=== PATIENT | male | born 1965 | race Caucasian/White ===

== ENCOUNTER 2017-04-05 16:34 | Emergency (ER) | payer MEDICARE ==
[2016-09-22 06:09] VITALS: BMI 23.7
[~2017-04-05 16:34] MED LIST: AMBIEN10 MG PO; ASPIRIN325 MG PO; BACLOFEN10 MG PO; BAYER CHEWABLE81 MG PO; COLACE100 MG PO; COREG6.25 MG PO; DURAGESIC1 PATCH .1 TRANSDERM; EFFIENT10 MG PO; EMBEDA PO; FLAGYL500 MG PO; FUROSEMIDE20 MG PO; GLIPIZIDE10 MG PO; GLUCOTROL 5 MG T5 MG PO; HYDROCODONE-APA1 TAB PO; ISOSORBIDE MONO30 M1 PO; LANTUS INSULIN10 ML SC; LASIX20 MG PO; LEVAQUIN500 MG PO; LIPITOR40 MG PO; NEURONTIN 300300 MG PO; NEURONTIN600 MG PO; NICODERM C1 PATCH .3 TRANSDERM; NITRO-DUR0.1 MG TD; NITROSTAT0.4 MG SL; NORCO 10/325 TA1 TA1 PO; NOVOLOG FLEXPEN INJ; PERCOCET 10/3251 TA1 PO; PLAVIX75 MG PO; PRINIVIL20 MG PO; ROXICODONE15 MG PO; SOMA350 MG PO; XANAX1 MG PO; ZESTRIL20 MG PO; ZOCOR20 MG PO; ZOLOFT50 MG PO; [UNRECOGNIZED DRUG - OTHER] PO
[2017-04-05 18:22] LABS: BASOPHILS 0.2 % (0-2); EOSINOPHILS 6.7 % (0-7); HEMATOCRIT 40.3 % (42.0-54.0); HEMOGLOBIN 13.4 g/dL (13.5-17.5); IMMATURE GRANULOCYTES 0.2 % (0-5); LYMPHOCYTES 32.5 % (15-50); MCH 29.1 pg (26.0-34.0); MCHC 33.3 g/dL (31.0-37.0); MCV 87.4 fL (80.0-100.0); MEAN PLATELET VOLUME 10.8 fL (7.4-10.4); NEUTROPHILS 52.4 % (40-80); PLATELET COUNT 208 10x3/uL (130-400); RBC 4.61 10x6/uL (4.20-6.10); RDW 12.9 % (11.5-14.5); WBC 9.7 10x3/uL (4.8-10.8)
== END 2017-04-05 18:40 | disposition home or self-care (01) ==
LOC: D.ER 16:34
PROVIDERS: Emergency Medicine
DX: S16.1XXA Strain of muscle, fascia and tendon at neck level, initial encounter (principal); V43.52XA Car driver injured in collision with other type car in traffic accident, initial encounter; Y93.89 Activity, other specified; Y92.410 Unspecified street and highway as the place of occurrence of the external cause; S50.311A Abrasion of right elbow, initial encounter; Z86.73 Personal history of transient ischemic attack (TIA), and cerebral infarction without residual deficits; I10 Essential (primary) hypertension; E11.9 Type 2 diabetes mellitus without complications; Z79.4 Long term (current) use of insulin; F17.200 Nicotine dependence, unspecified, uncomplicated

== ENCOUNTER 2017-04-07 21:19 | Observation (INO) | payer MEDICARE ==
[~2017-04-07] VITALS: Ht 177.8 cm; Wt 72.7 kg
[2017-04-07 22:08] LABS: BASOPHILS 0.2 % (0-2); EOSINOPHILS 6.8 % (0-7); HEMATOCRIT 40.5 % (42.0-54.0); HEMOGLOBIN 13.4 g/dL (13.5-17.5); IMMATURE GRANULOCYTES 0.1 % (0-5); LYMPHOCYTES 31.5 % (15-50); MCH 28.5 pg (26.0-34.0); MCHC 33.1 g/dL (31.0-37.0); MONOCYTES 8.9 % (2-11); NEUTROPHILS 52.5 % (40-80); PLATELET COUNT 215 10x3/uL (130-400); RBC 4.71 10x6/uL (4.20-6.10); RDW 12.8 % (11.5-14.5); WBC 8.2 10x3/uL (4.8-10.8)
[2017-04-07 22:29] LABS: ALBUMIN 3.8 g/dL (3.4-5.0); ALKALINE PHOSPHATASE 96 U/L (46-116); ALT (SGPT) 29 U/L (10-68); BILIRUBIN - TOTAL 0.48 mg/dL (0.2-1.3); CALC OSMOLALITY 286 mosm/kg (275-300); CALCIUM 8.8 mg/dL (8.5-10.1); CARBON DIOXIDE 29.9 mmol/L (21.0-32.0); CHLORIDE - SERUM 104 mmol/L (98-107); CREATININE - SERUM 0.6 mg/dL (0.6-1.3); GLUCOSE 230 mg/dL (74-106); PROTEIN - SERUM 6.9 g/dL (6.4-8.2); SODIUM 141 mmol/L (136-145); UREA NITROGEN 11 mg/dL (7-18); eGFR NON AFRICAN AMERICAN > 90 mL/min (90-120)
[2017-04-07 22:37] LABS: CHOL - HDL RATIO 4.9 ratio (2.3-4.9); CHOLESTEROL, TOTAL 160 mg/dL (0-200); CKMB 8.2 U/L (0.0-3.6); CREATINE KINASE 423 UL (21-232); HDL CHOLESTEROL 33 mg/dL (32-96); LDL CHOLESTEROL 81 mg/dL (0-100); LDL-HDL RATIO 2.5 ratio (1.5-3.5); TRIGLYCERIDE 232 mg/dL (30-200); TROPONIN-I 0.018 ng/mL (0.000-0.060)
--- NOTE | 2017-04-08 00:49 | NUR ---
RECEIVED FROM ER, TELEMTRY PLACED ON. IV-L. HAND-SL, BED IS LOW, SRX2, CALL LIGHT IN REACH, WILL CONTINUE TO MONITOR
[2017-04-08 01:30] VITALS: BP 126/69; Ht 177.8 cm; Wt 72.7 kg
[2017-04-08 04:32] VITALS: BP 106/64
[2017-04-08 05:26] LABS: CKMB 3.2 U/L (0.0-3.6); CREATINE KINASE 253 UL (21-232); TROPONIN-I < 0.017 ng/mL (0.000-0.060)
--- NOTE | 2017-04-08 07:30 | NUR ---
PT RESTING MIKHAIL, FAMILY AT BEDSIDE, DENIES NEEDS AT THIS TIME. BREATHING UNLABORED AND EQUAL, WILL CTM.
[2017-04-08 07:59] VITALS: BP 106/68
--- NOTE | 2017-04-08 10:07 | NUR ---
PT D/C. DISCHARGE INSTURCTRIONS PROVIDED AND PT VERBALIZED UNDERSTANDING. TELEMETRY REMOVED AND RETURNED TO AVIONICS SAFETY INSPECTOR. IV REMOVED WITH CATHETER INTACT, DRESSING APPLIED. RESPIRATIONS UNLABORED AND EQAUL, PT SHOWS NO SIGNS OF DISTRESS. WILL CALL FOR WHEELCHAIR ESCORT WHEN PT IS READY.
== END 2017-04-08 11:52 | disposition home or self-care (01) ==
LOC: D.ER 21:19 → D.M2 04-08 00:15 → OBSVTIME 04-08 00:15 → D.M2 04-08 00:15
PROVIDERS: Family Medicine; ADMIT Internal Medicine Interventional Cardiology
DX: R07.89 Other chest pain (principal); V89.2XXA Person injured in unspecified motor-vehicle accident, traffic, initial encounter; Z86.73 Personal history of transient ischemic attack (TIA), and cerebral infarction without residual deficits; I11.0 Hypertensive heart disease with heart failure; I50.9 Heart failure, unspecified; I25.10 Atherosclerotic heart disease of native coronary artery without angina pectoris; Z95.5 Presence of coronary angioplasty implant and graft; Z72.0 Tobacco use

== ENCOUNTER 2017-05-05 18:20 | Inpatient (IN) | payer MEDICARE ==
[~2017-05-05] VITALS: Ht 177.8 cm; Wt 85.1 kg
[2017-05-05 19:54] LABS: BASOPHILS 0.2 % (0-2); EOSINOPHILS 5.7 % (0-7); HEMATOCRIT 39.3 % (42.0-54.0); HEMOGLOBIN 13.5 g/dL (13.5-17.5); IMMATURE GRANULOCYTES 0.2 % (0-5); LYMPHOCYTES 27.2 % (15-50); MCH 29.2 pg (26.0-34.0); MCHC 34.4 g/dL (31.0-37.0); MCV 85.1 fL (80.0-100.0); MEAN PLATELET VOLUME 10.7 fL (7.4-10.4); MONOCYTES 7.3 % (2-11); NEUTROPHILS 59.4 % (40-80); PLATELET COUNT 237 10x3/uL (130-400); RBC 4.62 10x6/uL (4.20-6.10); RDW 13.1 % (11.5-14.5); WBC 10.7 10x3/uL (4.8-10.8)
[2017-05-05 20:07] LABS: ALBUMIN 3.6 g/dL (3.4-5.0); ALKALINE PHOSPHATASE 82 U/L (46-116); ALT (SGPT) 27 U/L (10-68); CALC OSMOLALITY 285 mosm/kg (275-300); CALCIUM 8.8 mg/dL (8.5-10.1); CARBON DIOXIDE 26.6 mmol/L (21.0-32.0); CHLORIDE - SERUM 103 mmol/L (98-107); CREATININE - SERUM 0.7 mg/dL (0.6-1.3); GLUCOSE 247 mg/dL (74-106); POTASSIUM - SERUM 4.2 mmol/L (3.5-5.1); SODIUM 140 mmol/L (136-145); UREA NITROGEN 11 mg/dL (7-18); eGFR NON AFRICAN AMERICAN > 90 mL/min (90-120)
[2017-05-05 20:18] LABS: AMYLASE - SERUM 16 U/L (25-115); CKMB 1.2 U/L (0.0-3.6); CREATINE KINASE 127 UL (21-232); LIPASE 70 U/L (73-393)
[2017-05-05 20:20] LABS: TROPONIN-I < 0.017 ng/mL (0.000-0.060)
[2017-05-05 22:54] LABS: APPEARANCE CLEAR (CLEAR); BILIRUBIN NEGATIVE (NEGATIVE); COLOR YELLOW (YELLOW); GLUCOSE 100 mg/dL (NEGATIVE); KETONE NEGATIVE (NEGATIVE); LEUKOCYTE ESTERASE NEGATIVE (NEGATIVE); NITRITE NEGATIVE (NEGATIVE); PROTEIN NEGATIVE (NEGATIVE); SPECIFIC GRAVITY 1.015 (1.005-1.020)
[2017-05-05 22:57] LABS: UDS - AMPHET NEGATIVE QUAL (NEGATIVE); UDS - BARB NEGATIVE QUAL (NEGATIVE); UDS - BENZO POSITIVE QUAL (NEGATIVE); UDS - COCAINE NEGATIVE QUAL (NEGATIVE); UDS - METH NEGATIVE QUAL (NEGATIVE); UDS - OPIATE POSITIVE QUAL (NEGATIVE); UDS - PCP NEGATIVE QUAL (NEGATIVE); UDS - THC NEGATIVE QUAL (NEGATIVE)
--- NOTE | 2017-05-05 23:08 | NUR ---
RECEIVED PT FROM ER, PT ACCOMPANY BY ER NURSE AND FAMILY MEMBERS. PT ALERT AND ORIENTED.
--- NOTE | 2017-05-06 04:00 | NUR ---
PT REST QUIETLY IN BED, BED LOW, EYE CLOSE, CALL LIGHT WITHIN REACH.
[2017-05-06 04:20] VITALS: BP 98/56
--- NOTE | 2017-05-06 07:19 | NUR ---
PT LAYING ON R SIDE SLEEPING RR EVEN AND UNLABORED. NO S/S DISTRESS NOTED IN BED WITH PT ALSO SLEEPING. SON IN THE FLOOR ALSO ASLEEP WILL CONT TO MONITOR
[2017-05-06 09:18] VITALS: BP 129/69
--- NOTE | 2017-05-06 10:03 | NUR ---
DURING AM ASSESSMENT. FAMILY IS CONCERNED ABOUT PT LEFT EYE "SEEMS DROOPY". CLEAR DRAINAGE FROM EYE NOTED. PT DOES HAVE SLIGHT LEFT SIDED WEAKNESS DURING ASSESSMENT. PT ABDOMEN IS DISTENDED BUT NOT FIRM. PT STATES IS SLIGHTLY TENDER TO TOUCH. PAGED DOMENIC BOARD MILL SUPERVISOR ABOUT PT LEFT SIDED WEAKNESS.
[2017-05-06 12:35] VITALS: BP 130/65
[2017-05-06 15:08] VITALS: Ht 177.8 cm; Wt 85.1 kg
[2017-05-06 16:27] VITALS: BP 104/68
--- NOTE | 2017-05-06 17:10 | NUR ---
PT STATING THAT DR LACY TOLD HIM THAT HE COULD BE ON A "PAIN PUMP TO SELF DELIVER PAIN MEDICATION". I EXPLAINED TO PT THAT DR LACY CHANGED HIS DOSAGE OF MEDICATION FROM D86KBOP TO 6HPRN HE REQUESTED AND HE TAKES AT HOME. PT INSISTED THAT DR LACY TOLD HIM THAT HE COULD BE ON A PAIN PUMP. I PERSONALLY ASKED DR LACY IF HE TOLD PT THIS. DR LACY SAID NO. I TOLD PT AGAIN THAT DR LACY DID NOT ORDER DISTRIBUTION TECH PUMP ETC. PT IS ANGRY AND WANTS TO TALK WITH DR LACY ABOUT THIS SUBJECT AGAIN TOMORROW.
--- NOTE | 2017-05-06 19:23 | NUR ---
RECEIVED REPORT, WILL ASSUME CARE OF PT, ASKING WHEN PAIN MEDS ARE DUE, NOT UNTIL 2129, THAN SAID DR. LACY WAS GOING TO GIVE HIM A CUSTOMER CONTACT REPRESENTATIVE PUMP, FAMILY IN ROOM, BED IS LOW, SRX2, WILL CONTINUE PLAN OF CARE
--- NOTE | 2017-05-06 19:55 | NUR ---
TORPEDO SPECIALIST AT BEDSIDE TO OBTAIN VITALS, CALL LIGHT IN REACH. WILL CONTINUE WITH PLAN OF CARE.
[2017-05-06 20:00] VITALS: BP 103/65
[2017-05-07] VITALS: BP 127/71
--- NOTE | 2017-05-07 01:41 | NUR ---
ASSESSMENT COMPLETE, SEE FLOW SHEET, PT ASKING FOR PAIN MEDS, WILL GIVE ORDER, BED IS LOW, SRX2, ASLEEP IN BED NEXT TO HIM, SON IN CHAIR, CALL LIGHT IN REACH, WILL CONTINUE PLAN OF CARE
[2017-05-07 04:00] VITALS: BP 109/69
[2017-05-07 06:13] LABS: BASOPHILS 0.3 % (0-2); EOSINOPHILS 6.3 % (0-7); HEMOGLOBIN 13.3 g/dL (13.5-17.5); IMMATURE GRANULOCYTES 0.3 % (0-5); LYMPHOCYTES 33.8 % (15-50); MCH 28.9 pg (26.0-34.0); MCHC 34.1 g/dL (31.0-37.0); MCV 84.8 fL (80.0-100.0); MEAN PLATELET VOLUME 11.1 fL (7.4-10.4); MONOCYTES 7.2 % (2-11); NEUTROPHILS 52.1 % (40-80); PLATELET COUNT 223 10x3/uL (130-400)
[2017-05-07 06:20] LABS: CALCIUM 8.9 mg/dL (8.5-10.1); CARBON DIOXIDE 27.1 mmol/L (21.0-32.0); CHLORIDE - SERUM 107 mmol/L (98-107); CHOL - HDL RATIO 4.5 ratio (2.3-4.9); CHOLESTEROL, TOTAL 130 mg/dL (0-200); CREATININE - SERUM 0.8 mg/dL (0.6-1.3); HDL CHOLESTEROL 29 mg/dL (32-96); LDL CHOLESTEROL 76 mg/dL (0-100); LDL-HDL RATIO 2.6 ratio (1.5-3.5); POTASSIUM - SERUM 3.9 mmol/L (3.5-5.1); SODIUM 144 mmol/L (136-145); TRIGLYCERIDE 125 mg/dL (30-200); eGFR NON AFRICAN AMERICAN > 90 mL/min (90-120)
[2017-05-07 06:21] LABS: CALC OSMOLALITY 291 mosm/kg (275-300); GLUCOSE 179 mg/dL (74-106); UREA NITROGEN 15 mg/dL (7-18)
[2017-05-07 07:31] VITALS: BP 95/52
--- NOTE | 2017-05-07 07:53 | NUR ---
PT IN BED ONE FAMILY MEMBER AT BEDSIDE AND ANOTHER IN THE BED WITH PT PROVIDED PAIN MEDICATION ORDERED DENIES FURTHER NEEDS AT THIS TIME WILL CONTINUE TO MONITOR
--- NOTE | 2017-05-07 09:45 | NUR ---
PT SITTING UP IN BED WITH AND SON AT BEDSIDE. DENY NEEDS WILL CONT TO MONITOR
[2017-05-07 12:39] VITALS: BP 115/69
[2017-05-07 13:41] LABS: HEMOGLOBIN A1C 6.6 % (4.8-6.0)
--- NOTE | 2017-05-07 15:22 | NUR ---
PT RECEIVED DISCHARGE INSTRUCTIONS AND VERBALIZED UNDERSTANDING. IV REMOVED WITH CATHETER INTACT. PT LEFT FLOOR AT THIS TIME VIA WHEELCHAIR.
--- NOTE | 2017-05-07 16:01 | NUR ---
Patient Name: NATTY KNAPP Admission Status: ER Accout number: [id number] Admission Date: 05-05-2017 : 1965 Admission Diagnosis: Attending: BAMBI Current LOS: 2 Anticipated DC Date: 05-07-2017 Planned Disposition: Home Primary Insurance: MEDICARE A & B LATE ENTRY: Discharge Planning Comments: * Is the patient Alert and Oriented? Yes 0 * How many steps to enter\exit or inside your home? 3 0 * PCP DR. EPPS 0 * Pharmacy BUDGET 0 * Preadmission Environment Home with Family 0 * ADLs Independent 0 * Equipment Cane 0 * Other Equipment NO MEDICAL EQUIPMENT PROVIDER PREFERENCE 0 * List name and contact numbers for known caregivers / representatives who currently or will assist patient after discharge: KIM KNAPP, SPOUSE, 0 * Community resources currently utilized None 0 * Please name any agencies selected above. NONE 0 * Additional services required to return to the preadmission environment? No 0 * Can the patient safely return to the preadmission environment? Yes 0 * Has this patient been hospitalized within the prior 30 days at any hospital? No 0 CM MET WITH PT IN ROOM TO DISCUSS DISCHARGE PLANNING AND NEEDS. PT REPORTS LIVING AT HOME INDEPENDENTLY WITH SPOUSE. PT HAS A CANE WITH NO MEDICAL EQUIPMENT PROVIDER PREFERENCE. PT HAS NO OUTSIDE SERVICES ASSISTING IN THE HOME. CM DISCUSSED AVAILABILITY OF HOME HEALTH, REHAB SERVICES AND MEDICAL EQUIPMENT. PT DENIES DISCHARGE NEEDS, REPORTS HIS SON WILL PICK HIM UP FOR DISCHARGE HOME TODAY. IMPORTANT MESSAGE FROM MEDICARE PROVIDED AND EXPLAINED. Paralegal Supervisor: Chino Tran
--- NOTE | 2017-05-08 12:31 | EC ---
PATIENT:NATTY KNAPP DATE OF SERVICE: 05/05/17 SEX: M MEDICAL RECORD: [id number] DATE OF : [birth year] LOCATION:D.M2 D.210 AGE OF PATIENT: 51 ADMISSION DATE: 05/05/17 REFERRING PHYSICIAN: INTERPRETING PHYSICIAN: ESTELLA WYMAN MD ECHOCARDIOGRAM REPORT ECHO CHARGES 4 ECHO COMPLETE CLINICAL DIAGNOSIS: CVA HX OF CAD/CABG/TIA ECHOCARDIOGRAPHIC MEASUREMENTS (adult normal given) AC root (d.<3.7cm) 3.2 cm LV Septum d (<1.2 cm> 1.5 cm Valve Excursion 1.8 cm LV Septum (systole) 1.6 cm Left Atria (s.<4.0cm> 3.7 cm LVPW d(<1.2cm) 1.6 cm RV (d.<2.3cm) 3.8 cm LVPW (sytole) 1.7 cm LV diastole(<5.6CM) 4.2 cm MV E-F(>70mm/sec) cm LV systole 3.0 cm LVOT Diameter 1.8 cm MV exc.(>10mm) 1.4 cm Est.ejection fraction (50-75%) % Pericardial Effusion N DOPPLER: LVIT cm/sec A 68.0 cm/sec E 53.0 cm/sec LA cm/sec RVSP 20 mmHg LVOT 105 cm/sec AOP1/2T m/s Asc. Ao 153 cm/sec RVOT 91 cm/sec RA cm/sec PA 103 cm/sec AV Gradient Peak 9.41 mmHg AV Mean 4.66 mmHg AV Area 1.6 cm MV Gradient Peak 3.36 mmHg MV Mean 1.34 mmHg MV Area cm COMMENTS: Supervisor Mapping: Jeromy FLOWERS Clin Nurse Spec: 2 Dr. Stahl TAPE# PACS DATE OF SERVICE: 05/06/2017 Echocardiogram FINDINGS: 1. Left ventricular chamber size is within normal limits. Left ventricular systolic function is normal. Overall ejection fraction estimated at 55%. 2. Left atrium, right atrium and right ventricular chamber sizes are within normal limits. Left atrium measures 3.7 cm. 3. Valvular structures have normal structure and motion. ECHOCARDIOGRAM REPORT [id number] NATTY KNAPP 4. Doppler interrogation reveals trace mitral regurgitation, trace tricuspid regurgitation. No other valvular insufficiency or stenosis. 5. No cardiac source of neurologic emboli. TRANSINT:[id number] Voice Confirmation ID: [id number] DOCUMENT ID: [id number] ESTELLA WYMAN MD at 1231 CC: [id number] DICTATION DATE: 05/07/17 1007 ACCOUNTS SPECIALIST: 05/07/17 194 DIS IN 05/07/17 [facility] [address] [place] [id number]
== END 2017-05-07 15:25 | disposition home or self-care (01) | DRG 441 ==
LOC: D.ER 18:20 → D.M2 20:53
PROVIDERS: Emergency Medicine; ADMIT Family Medicine
DX: K72.90 Hepatic failure, unspecified without coma (principal); I63.9 Cerebral infarction, unspecified; I69.954 Hemiplegia and hemiparesis following unspecified cerebrovascular disease affecting left non-dominant side; G89.29 Other chronic pain; I25.10 Atherosclerotic heart disease of native coronary artery without angina pectoris; I50.9 Heart failure, unspecified; E11.9 Type 2 diabetes mellitus without complications; R26.9 Unspecified abnormalities of gait and mobility; E78.5 Hyperlipidemia, unspecified; F32.9 Major depressive disorder, single episode, unspecified; F41.9 Anxiety disorder, unspecified; Z95.1 Presence of aortocoronary bypass graft; Z95.5 Presence of coronary angioplasty implant and graft

== ENCOUNTER 2017-06-11 11:38 | Emergency (ER) | payer MEDICARE ==
[2017-05-06 15:08] VITALS: BMI 26.8
[2017-06-11 12:38] LABS: BASOPHILS 0.1 % (0-2); EOSINOPHILS 2.5 % (0-7); HEMATOCRIT 38.4 % (42.0-54.0); HEMOGLOBIN 13.1 g/dL (13.5-17.5); IMMATURE GRANULOCYTES 0.3 % (0-5); LYMPHOCYTES 15.6 % (15-50); MCH 29.2 pg (26.0-34.0); MCHC 34.1 g/dL (31.0-37.0); MCV 85.5 fL (80.0-100.0); MEAN PLATELET VOLUME 10.6 fL (7.4-10.4); MONOCYTES 6.6 % (2-11); NEUTROPHILS 74.9 % (40-80); PLATELET COUNT 184 10x3/uL (130-400); RBC 4.49 10x6/uL (4.20-6.10); RDW 13.3 % (11.5-14.5); WBC 14.5 10x3/uL (4.8-10.8)
[2017-06-11 12:54] LABS: ALBUMIN 3.6 g/dL (3.4-5.0); ALKALINE PHOSPHATASE 80 U/L (46-116); ALT (SGPT) 26 U/L (10-68); BILIRUBIN - TOTAL 0.65 mg/dL (0.2-1.3); CALC OSMOLALITY 276 mosm/kg (275-300); CALCIUM 8.4 mg/dL (8.5-10.1); CARBON DIOXIDE 26.5 mmol/L (21.0-32.0); CHLORIDE - SERUM 102 mmol/L (98-107); CREATININE - SERUM 0.8 mg/dL (0.6-1.3); GLUCOSE 203 mg/dL (74-106); POTASSIUM - SERUM 4.6 mmol/L (3.5-5.1); PROTEIN - SERUM 6.9 g/dL (6.4-8.2); SODIUM 136 mmol/L (136-145); UREA NITROGEN 11 mg/dL (7-18); eGFR NON AFRICAN AMERICAN > 90 mL/min (90-120)
[2017-06-11 13:02] LABS: CREATINE KINASE 57 UL (21-232); PRO BNP 89 pg/mL (0-125)
[2017-06-11 13:09] LABS: TROPONIN-I < 0.017 ng/mL (0.000-0.060)
[2017-06-11 13:35] LABS: APPEARANCE CLEAR (CLEAR); BACTERIA FEW /hpf (NONE SEEN); BILIRUBIN NEGATIVE (NEGATIVE); COLOR DK YELLOW (YELLOW); EPITHELIAL CELLS 0-5 /hpf (0-5); GLUCOSE NEGATIVE (NEGATIVE); KETONE NEGATIVE (NEGATIVE); LEUKOCYTE ESTERASE TRACE (NEGATIVE); MUCUS >1+ /lpf (NONE SEEN); NITRITE NEGATIVE (NEGATIVE); PROTEIN NEGATIVE (NEGATIVE); SPECIFIC GRAVITY 1.015 (1.005-1.020); WHITE CELLS - URINE 0-5 /hpf (0-5)
== END 2017-06-11 14:50 | disposition home or self-care (01) ==
LOC: D.ER 11:38
PROVIDERS: Emergency Medicine; Nurse Practitioner Family
DX: J06.9 Acute upper respiratory infection, unspecified (principal); J20.9 Acute bronchitis, unspecified; G89.4 Chronic pain syndrome; Z86.73 Personal history of transient ischemic attack (TIA), and cerebral infarction without residual deficits; E11.9 Type 2 diabetes mellitus without complications; Z79.4 Long term (current) use of insulin; J44.9 Chronic obstructive pulmonary disease, unspecified

== ENCOUNTER 2017-07-12 14:56 | Emergency (ER) | payer MEDICARE ==
[2017-05-06 15:08] VITALS: BMI 26.8
[2017-07-12 16:00] LABS: BASOPHILS 0.2 % (0-2); EOSINOPHILS 3.3 % (0-7); HEMATOCRIT 42.6 % (42.0-54.0); HEMOGLOBIN 14.4 g/dL (13.5-17.5); IMMATURE GRANULOCYTES 0.3 % (0-5); LYMPHOCYTES 26.4 % (15-50); MCH 28.9 pg (26.0-34.0); MCHC 33.8 g/dL (31.0-37.0); MCV 85.4 fL (80.0-100.0); MONOCYTES 6.1 % (2-11); NEUTROPHILS 63.7 % (40-80); RBC 4.99 10x6/uL (4.20-6.10); RDW 13.3 % (11.5-14.5); WBC 13.5 10x3/uL (4.8-10.8)
[2017-07-12 16:07] LABS: APPEARANCE CLEAR (CLEAR); COLOR YELLOW (YELLOW)
[2017-07-12 16:08] LABS: BILIRUBIN NEGATIVE (NEGATIVE); GLUCOSE 250 mg/dL (NEGATIVE); KETONE NEGATIVE (NEGATIVE); NITRITE NEGATIVE (NEGATIVE); PROTEIN NEGATIVE (NEGATIVE); UROBILINOGEN NORMAL (NORMAL)
[2017-07-12 16:10] LABS: PLATELET COUNT 237 10x3/uL (130-400)
[2017-07-12 16:19] LABS: ALBUMIN 4.1 g/dL (3.4-5.0); ALKALINE PHOSPHATASE 99 U/L (46-116); ALT (SGPT) 26 U/L (10-68); BILIRUBIN - TOTAL 0.89 mg/dL (0.2-1.3); CALC OSMOLALITY 282 mosm/kg (275-300); CALCIUM 9.1 mg/dL (8.5-10.1); CARBON DIOXIDE 23.7 mmol/L (21.0-32.0); CHLORIDE - SERUM 100 mmol/L (98-107); CREATININE - SERUM 0.9 mg/dL (0.6-1.3); PROTEIN - SERUM 7.5 g/dL (6.4-8.2); SODIUM 136 mmol/L (136-145); UREA NITROGEN 14 mg/dL (7-18); eGFR NON AFRICAN AMERICAN > 90 mL/min (90-120)
[2017-07-12 16:20] LABS: GLUCOSE 282 mg/dL (74-106)
[2017-07-12 17:54] LABS: AMYLASE - SERUM 20 U/L (25-115); LIPASE 85 U/L (73-393)
[2017-07-12 18:06] LABS: TROPONIN-I < 0.017 ng/mL (0.000-0.060)
== END 2017-07-12 19:15 | disposition home or self-care (01) ==
LOC: D.ER 14:56
PROVIDERS: Emergency Medicine; Nurse Practitioner Acute Care
DX: H66.92 Otitis media, unspecified, left ear (principal); J20.9 Acute bronchitis, unspecified; I49.3 Ventricular premature depolarization

== ENCOUNTER 2017-07-24 16:52 | Emergency (ER) | payer MEDICARE ==
[2017-05-06 15:08] VITALS: BMI 26.8
[2017-07-24 17:26] LABS: BASOPHILS 0.1 % (0-2); EOSINOPHILS 1.9 % (0-7); HEMATOCRIT 41.8 % (42.0-54.0); HEMOGLOBIN 14.2 g/dL (13.5-17.5); IMMATURE GRANULOCYTES 0.3 % (0-5); LYMPHOCYTES 11.9 % (15-50); MCV 85.3 fL (80.0-100.0); MEAN PLATELET VOLUME 10.7 fL (7.4-10.4); MONOCYTES 7.5 % (2-11); NEUTROPHILS 78.3 % (40-80); PLATELET COUNT 262 10x3/uL (130-400); WBC 19.5 10x3/uL (4.8-10.8)
[2017-07-24 17:41] LABS: ALBUMIN 3.9 g/dL (3.4-5.0); ALKALINE PHOSPHATASE 93 U/L (46-116); ALT (SGPT) 29 U/L (10-68); BILIRUBIN - TOTAL 0.59 mg/dL (0.2-1.3); CALC OSMOLALITY 285 mosm/kg (275-300); CALCIUM 9.3 mg/dL (8.5-10.1); CARBON DIOXIDE 26.1 mmol/L (21.0-32.0); CHLORIDE - SERUM 102 mmol/L (98-107); CREATININE - SERUM 0.9 mg/dL (0.6-1.3); GLUCOSE 221 mg/dL (74-106); POTASSIUM - SERUM 4.1 mmol/L (3.5-5.1); PROTEIN - SERUM 7.5 g/dL (6.4-8.2); SODIUM 140 mmol/L (136-145); UREA NITROGEN 13 mg/dL (7-18); eGFR NON AFRICAN AMERICAN > 90 mL/min (90-120)
[2017-07-24 17:51] LABS: CREATINE KINASE 63 UL (21-232)
[2017-07-24 17:52] LABS: TROPONIN-I < 0.017 ng/mL (0.000-0.060)
[2017-07-24 18:11] LABS: APPEARANCE CLEAR (CLEAR); BILIRUBIN NEGATIVE (NEGATIVE); COLOR YELLOW (YELLOW); GLUCOSE NEGATIVE (NEGATIVE); KETONE NEGATIVE (NEGATIVE); NITRITE NEGATIVE (NEGATIVE); PROTEIN NEGATIVE (NEGATIVE); UROBILINOGEN NORMAL (NORMAL)
[2017-07-24 18:13] LABS: BACTERIA FEW /hpf (NONE SEEN)
== END 2017-07-24 21:20 | disposition home or self-care (01) ==
LOC: D.ER 16:52
PROVIDERS: Emergency Medicine
DX: J18.9 Pneumonia, unspecified organism (principal); N39.0 Urinary tract infection, site not specified; J44.9 Chronic obstructive pulmonary disease, unspecified; Z86.73 Personal history of transient ischemic attack (TIA), and cerebral infarction without residual deficits; E11.9 Type 2 diabetes mellitus without complications; Z79.4 Long term (current) use of insulin; Z86.79 Personal history of other diseases of the circulatory system; F17.200 Nicotine dependence, unspecified, uncomplicated; R00.0 Tachycardia, unspecified

== ENCOUNTER 2017-08-29 13:12 | Inpatient (IN) | payer MEDICARE ==
[~2017-08-29] VITALS: Ht 180.3 cm; Wt 77.1 kg
[2017-08-29 13:43] LABS: BASOPHILS 0.1 % (0-2); EOSINOPHILS 3.4 % (0-7); HEMATOCRIT 40.3 % (42.0-54.0); HEMOGLOBIN 13.3 g/dL (13.5-17.5); IMMATURE GRANULOCYTES 0.3 % (0-5); LYMPHOCYTES 14.1 % (15-50); MCH 28.6 pg (26.0-34.0); MCV 86.7 fL (80.0-100.0); MEAN PLATELET VOLUME 10.9 fL (7.4-10.4); MONOCYTES 5.9 % (2-11); NEUTROPHILS 76.2 % (40-80); PLATELET COUNT 222 10x3/uL (130-400); RBC 4.65 10x6/uL (4.20-6.10); RDW 13.1 % (11.5-14.5); WBC 15.9 10x3/uL (4.8-10.8)
[2017-08-29 13:46] LABS: APPEARANCE CLEAR (CLEAR); BILIRUBIN NEGATIVE (NEGATIVE); COLOR YELLOW (YELLOW); GLUCOSE NEGATIVE (NEGATIVE); KETONE NEGATIVE (NEGATIVE); NITRITE NEGATIVE (NEGATIVE); PROTEIN TRACE mg/dL (NEGATIVE); SPECIFIC GRAVITY 1.015 (1.005-1.020); UROBILINOGEN NORMAL (NORMAL)
[2017-08-29 13:47] LABS: BACTERIA FEW /hpf (NONE SEEN); EPITHELIAL CELLS 0-5 /hpf (0-5); RED CELLS - URINE 0-5 /hpf (0-5); WHITE CELLS - URINE 0-5 /hpf (0-5)
[2017-08-29 13:58] LABS: ALBUMIN 3.5 g/dL (3.4-5.0); ALKALINE PHOSPHATASE 80 U/L (46-116); ALT (SGPT) 24 U/L (10-68); AMYLASE - SERUM 20 U/L (25-115); BILIRUBIN - TOTAL 0.61 mg/dL (0.2-1.3); CALC OSMOLALITY 288 mosm/kg (275-300); CALCIUM 8.8 mg/dL (8.5-10.1); CARBON DIOXIDE 25.3 mmol/L (21.0-32.0); CHLORIDE - SERUM 106 mmol/L (98-107); CREATININE - SERUM 0.9 mg/dL (0.6-1.3); GLUCOSE 218 mg/dL (74-106); LIPASE 76 U/L (73-393); POTASSIUM - SERUM 4.5 mmol/L (3.5-5.1); PROTEIN - SERUM 6.8 g/dL (6.4-8.2); SODIUM 140 mmol/L (136-145); UREA NITROGEN 21 mg/dL (7-18); eGFR NON AFRICAN AMERICAN > 90 mL/min (90-120)
--- NOTE | 2017-08-29 15:56 | NUR ---
RECEIVED TO ROOM 2219 FROM ER VIA BED. ORIENTED TO ROOM AND CALL LIGHT SYSTEM. CALL LIGHT IN REACH. WILL CONTINUE WITH PLAN OF CARE.
[2017-08-29] MEDS ORDERED: XANAX2 MG PO (16:15)
[2017-08-29] MEDS ORDERED: AMITRIPTYLINE H50 MG PO (16:16)
[2017-08-29] MEDS ORDERED: HYSINGLA ER30 MG PO (16:18)
--- NOTE | 2017-08-29 16:22 | NUR ---
MED REC, HISTORY, PHARMACY, PASSWORD, AND EMERGENCY CONTACT INFO OBTAINED AND PLACED IN COMPUTER. NS INITIATED PER ORDER. CALL LIGHT IN REACH. WILL CONTINUE WITH PLAN OF CARE. ALSO REVIEWED HEIGHT AND WEIGHT.
[2017-08-29 16:28] VITALS: BP 93/48; BMI 23.7
[2017-08-29 16:44] VITALS: BP 93/48
--- NOTE | 2017-08-29 17:10 | NUR ---
SITTING UP ON SIDE OF BED EATING SUPPER. FSBS. 232. GIVEN 4 UNITS HUMALOG SUBQ PER SS.
[2017-08-29 20:00] VITALS: BP 101/52
[2017-08-30 05:48] LABS: BASOPHILS 0.2 % (0-2); EOSINOPHILS 4.7 % (0-7); HEMATOCRIT 37.7 % (42.0-54.0); HEMOGLOBIN 12.1 g/dL (13.5-17.5); IMMATURE GRANULOCYTES 0.4 % (0-5); MCH 28.1 pg (26.0-34.0); MCHC 32.1 g/dL (31.0-37.0); MCV 87.5 fL (80.0-100.0); MEAN PLATELET VOLUME 11.4 fL (7.4-10.4); MONOCYTES 8.9 % (2-11); NEUTROPHILS 57.8 % (40-80); RBC 4.31 10x6/uL (4.20-6.10); RDW 13.2 % (11.5-14.5)
[2017-08-30 05:54] LABS: PLATELET COUNT 177 10x3/uL (130-400); WBC 8.5 10x3/uL (4.8-10.8)
[2017-08-30 06:01] LABS: ALBUMIN 2.8 g/dL (3.4-5.0); ALKALINE PHOSPHATASE 66 U/L (46-116); ALT (SGPT) 18 U/L (10-68); CALCIUM 8.4 mg/dL (8.5-10.1); CARBON DIOXIDE 26.9 mmol/L (21.0-32.0); CHLORIDE - SERUM 108 mmol/L (98-107); POTASSIUM - SERUM 4.1 mmol/L (3.5-5.1); PROTEIN - SERUM 5.6 g/dL (6.4-8.2); SODIUM 143 mmol/L (136-145)
[2017-08-30 06:06] LABS: CALC OSMOLALITY 286 mosm/kg (275-300); CREATININE - SERUM 0.6 mg/dL (0.6-1.3); GLUCOSE 134 mg/dL (74-106); UREA NITROGEN 13 mg/dL (7-18); eGFR NON AFRICAN AMERICAN > 90 mL/min (90-120)
--- NOTE | 2017-08-30 07:10 | NUR ---
REPORT RECEIVED FROM BRAILLE TRANSLATOR NURSE. CALL LIGHT IN REACH.
--- NOTE | 2017-08-30 08:20 | NUR ---
ASSESSMENT COMPLETED. C/O PAIN OF 10. REQUESTING IV MORPHINE WHICH WAS ADMINISTERED PER ORDER. ALSO GAVE SCHEDULED OXYCONTIN PO. FAMILY IN ROOM. CALL LIGHT IN REACH. WILL CONTINUE WITH PLAN OF CARE.
[2017-08-30 08:38] VITALS: BP 126/67
--- NOTE | 2017-08-30 09:25 | NUR ---
STATES PAIN IS NOW DOWN TO A 7. REFUSES SCDs AT THIS TIME.
--- NOTE | 2017-08-30 11:46 | NUR ---
PATRICIO PO. FSBS 263 SO 6 UNITS HUMALOG SUBQ TO LEFT ARM. CALL LIGHT IN REACH.
--- NOTE | 2017-08-30 12:44 | NUR ---
HAS AMBULATED IN HALLWAY TWICE TODAY. TOLERATING WELL.
[2017-08-30 14:04] VITALS: Ht 180.3 cm; Wt 77.1 kg
--- NOTE | 2017-08-30 14:22 | NUR ---
ASKING FOR HIS PAIN MED. REMINDED PATIENT THAT HE HAS A PAIN PUMP WHICH HE CAN PUSH EVERY 10 MINUTES (WHENEVER THE LIGHT IS GREEN). VERBALIZED UNDERSTANDING AND STATED THAT HE FORGOT AT FIRST.
[2017-08-30 16:16] VITALS: BP 125/82
--- NOTE | 2017-08-30 16:41 | NUR ---
FSBS 265. HUMALOG 6 UNITS SUBQ TO LEFT ARM. NEW VIAL OF MORPHINE REPLACED. LEVAQUIN IVPB. REQUESTING FOR ROOM TO GET STRAIGHTENED AND LINENS CHANGED. WILL NOTIFY EMERGENCY DISPATCH OPERATOR.
--- NOTE | 2017-08-30 17:26 | NUR ---
NO SIGNS OF ACUTE DISTRESS. BED IN LOWEST POSITION, SIDE RAILS UP X 2, CALL LIGHT WITHIN REACH.
--- NOTE | 2017-08-30 18:20 | NUR ---
NO CHANGES IN INITIAL ASSESSMENT. STILL REFUSES SCDs. CALL LIGHT IN REACH. WILL CONTINUE WITH PLAN OF CARE.
--- NOTE | 2017-08-30 20:00 | NUR ---
ASSESSMENT PER FLOWSHEET. IV PATENT RT HAND OF NS AT 150CC'S/HR SITE CLEAR BIOINFORMATICS COMPUTER SCIENTIST OF MORPHINE IN USE WITH SETTINGS AT 1MG Q10MIN W/NO L/O. TELM. SHOWS SR. FAMILY MEMBERS AT BEDSIDE PT REQUESTING TO HAVE IV DISCONNECTED SO HE CAN GO WALK WITH HIS FAMILY. IV DISCONNECTED AND PLACED ON HOLD.
--- NOTE | 2017-08-30 20:50 | NUR ---
PT RETURNS TO ROOM IV RECONNECTED. HS MEDS GIVEN PER DEC. UQPA=064. HUMALOG INSULIN 2 UNITS GIVEN SUBC PER S/S TO LEFT ARM.
--- NOTE | 2017-08-30 22:30 | NUR ---
PT REQUESTING TO BE DISCONNECTED FROM IV TO GO FOR A WALK WITH FAMILY MEMBERS.
[2017-08-30 23:01] VITALS: BP 143/75
--- NOTE | 2017-08-30 23:15 | NUR ---
PT RETURNS TO ROOM IV RECONNECTED. MILK AND FLOYD CRACKERS GIVEN TO PATIENT FOR A SNACK.
--- NOTE | 2017-08-31 00:37 | NUR ---
EYES CLOSED RESPIRATIONS WITH EAS AND UNLABORED.
[2017-08-31 01:52] VITALS: BP 147/66
[2017-08-31 05:22] VITALS: BP 118/72
[2017-08-31 06:04] LABS: BASOPHILS 0.2 % (0-2); EOSINOPHILS 5.8 % (0-7); HEMATOCRIT 35.7 % (42.0-54.0); HEMOGLOBIN 11.8 g/dL (13.5-17.5); IMMATURE GRANULOCYTES 0.5 % (0-5); LYMPHOCYTES 29.3 % (15-50); MCH 28.4 pg (26.0-34.0); MCHC 33.1 g/dL (31.0-37.0); MCV 85.8 fL (80.0-100.0); MEAN PLATELET VOLUME 10.9 fL (7.4-10.4); NEUTROPHILS 56.2 % (40-80); PLATELET COUNT 173 10x3/uL (130-400); RBC 4.16 10x6/uL (4.20-6.10); RDW 12.9 % (11.5-14.5); WBC 8.1 10x3/uL (4.8-10.8)
[2017-08-31 06:32] LABS: ALBUMIN 2.9 g/dL (3.4-5.0); ALKALINE PHOSPHATASE 62 U/L (46-116); ALT (SGPT) 17 U/L (10-68); BILIRUBIN - TOTAL 0.27 mg/dL (0.2-1.3); CALC OSMOLALITY 286 mosm/kg (275-300); CALCIUM 8.6 mg/dL (8.5-10.1); CARBON DIOXIDE 25.6 mmol/L (21.0-32.0); CHLORIDE - SERUM 109 mmol/L (98-107); CREATININE - SERUM 0.6 mg/dL (0.6-1.3); GLUCOSE 141 mg/dL (74-106); POTASSIUM - SERUM 3.7 mmol/L (3.5-5.1); PROTEIN - SERUM 5.9 g/dL (6.4-8.2); SODIUM 143 mmol/L (136-145); UREA NITROGEN 12 mg/dL (7-18); eGFR NON AFRICAN AMERICAN > 90 mL/min (90-120)
--- NOTE | 2017-08-31 06:39 | NUR ---
QLTM=570. HUMALOG INSULIN 2 UNITS GIVEN SUBC PER S/S RT ARM.
--- NOTE | 2017-08-31 07:30 | NUR ---
ASSESSMENT PER FLOW SHEET.PT VERY ANXIOUS AND UPSET THIS AM. PT WANTS TO DC HOME. PT STATES HIS DOG HAD BEEN RAN OVER AFTER BEING PET FOR 16 YEARS. HE ALSO STATES HIS GRANDCHILD HAS THE FLU AND MAY GO TO [facility]. HE IS WANTING TO DC HOME. MONITOR FOR NEEDS. IV DISCONNECTED AND TELEMETRY OFF PER PT REQUEST.
[2017-08-31 08:13] VITALS: BP 172/92
[2017-08-31] MEDS ORDERED: MUCINEX1200 MG/BO PO (11:33)
[2017-08-31] MEDS ORDERED: BENZONATATE200 MG PO (11:33)
[2017-08-31] MEDS ORDERED: LEVAQUIN750 MG PO (11:33)
[2017-08-31] MEDS ORDERED: VENTOLIN HFA18 GM INH (11:34)
--- NOTE | 2017-08-31 11:55 | NUR ---
DISCHARGE INSTRUCTIONS WITH PT,STATES UNDERSTANDING.IV DCD WITH CATH TIP INTACT.LEFT UNIT WITH FAMILY,REFUSED WHEELCHAIR.
== END 2017-08-31 11:56 | disposition home or self-care (01) | DRG 195 ==
LOC: D.ER 13:12 → D.MS 15:08
PROVIDERS: Family Medicine; ADMIT Emergency Medicine
DX: J18.9 Pneumonia, unspecified organism (principal); I11.0 Hypertensive heart disease with heart failure; I50.9 Heart failure, unspecified; E11.69 Type 2 diabetes mellitus with other specified complication; K72.10 Chronic hepatic failure without coma

== ENCOUNTER 2017-10-05 16:09 | Emergency (ER) | payer MEDICARE ==
[2017-08-30 14:04] VITALS: BMI 23.7
[~2017-10-05 16:09] MED LIST changes: +AMITRIPTYLINE H50 MG PO; +BENZONATATE200 MG PO; +HYSINGLA ER30 MG PO; +LEVAQUIN750 MG PO; +MUCINEX1200 MG/BO PO; +VENTOLIN HFA18 GM INH; +XANAX2 MG PO
== END 2017-10-05 17:10 | disposition home or self-care (01) ==
LOC: D.ER 16:09
DX: Z03.89 Encounter for observation for other suspected diseases and conditions ruled out (principal); Z76.0 Encounter for issue of repeat prescription; I50.9 Heart failure, unspecified; J44.9 Chronic obstructive pulmonary disease, unspecified; Z86.73 Personal history of transient ischemic attack (TIA), and cerebral infarction without residual deficits; E11.9 Type 2 diabetes mellitus without complications; Z79.4 Long term (current) use of insulin

== ENCOUNTER → 2017-10-13 14:42 | Outpatient (CLI) | payer MEDICARE ==
[2017-08-30 14:04] VITALS: BMI 23.7
[2017-10-13 15:06] LABS: BASOPHILS 0.2 % (0-2); EOSINOPHILS 3.4 % (0-7); HEMATOCRIT 43.3 % (42.0-54.0); HEMOGLOBIN 14.8 g/dL (13.5-17.5); IMMATURE GRANULOCYTES 0.2 % (0-5); MCH 28.4 pg (26.0-34.0); MCHC 34.2 g/dL (31.0-37.0); MCV 83.1 fL (80.0-100.0); MEAN PLATELET VOLUME 10.6 fL (7.4-10.4); MONOCYTES 5.1 % (2-11); NEUTROPHILS 67.1 % (40-80); RBC 5.21 10x6/uL (4.20-6.10); RDW 13.5 % (11.5-14.5); WBC 10.8 10x3/uL (4.8-10.8)
[2017-10-13 15:09] LABS: PLATELET COUNT 341 10x3/uL (130-400)
[2017-10-13 15:30] LABS: HEMOGLOBIN A1C 7.5 % (4.8-6.0)
[2017-10-13 15:46] LABS: ALBUMIN 4.2 g/dL (3.4-5.0); ALKALINE PHOSPHATASE 101 U/L (46-116); ALT (SGPT) 32 U/L (10-68); BILIRUBIN - TOTAL 0.74 mg/dL (0.2-1.3); CALC OSMOLALITY 288 mosm/kg (275-300); CALCIUM 9.2 mg/dL (8.5-10.1); CARBON DIOXIDE 24.8 mmol/L (21.0-32.0); CHLORIDE - SERUM 101 mmol/L (98-107); CHOL - HDL RATIO 4.3 ratio (2.3-4.9); CHOLESTEROL, TOTAL 129 mg/dL (0-200); CREATININE - SERUM 0.9 mg/dL (0.6-1.3); HDL CHOLESTEROL 30 mg/dL (32-96); LDL CHOLESTEROL 70 mg/dL (0-100); LDL-HDL RATIO 2.3 ratio (1.5-3.5); POTASSIUM - SERUM 4.6 mmol/L (3.5-5.1); SODIUM 138 mmol/L (136-145); TRIGLYCERIDE 147 mg/dL (30-200); UREA NITROGEN 10 mg/dL (7-18); eGFR NON AFRICAN AMERICAN > 90 mL/min (90-120)
[2017-10-13 16:01] LABS: GLUCOSE 354 mg/dL (74-106)
== END | disposition home or self-care (01) ==
LOC: D.LAB 08:30
PROVIDERS: Family Medicine
DX: E11.9 Type 2 diabetes mellitus without complications (principal)

== ENCOUNTER 2017-11-09 12:11 | Emergency (ER) | payer MEDICARE ==
[2017-08-30 14:04] VITALS: BMI 23.7
[2017-11-09 13:41] LABS: BASOPHILS 0.3 % (0-2); EOSINOPHILS 2.5 % (0-7); HEMATOCRIT 45.3 % (42.0-54.0); HEMOGLOBIN 15.3 g/dL (13.5-17.5); IMMATURE GRANULOCYTES 0.3 % (0-5); LYMPHOCYTES 19.5 % (15-50); MCH 28.4 pg (26.0-34.0); MCHC 33.8 g/dL (31.0-37.0); MCV 84.2 fL (80.0-100.0); MEAN PLATELET VOLUME 11.1 fL (7.4-10.4); MONOCYTES 5.3 % (2-11); NEUTROPHILS 72.1 % (40-80); PLATELET COUNT 309 10x3/uL (130-400); RBC 5.38 10x6/uL (4.20-6.10); RDW 13.6 % (11.5-14.5); WBC 11.9 10x3/uL (4.8-10.8)
[2017-11-09 13:54] LABS: APTT 28.9 SECONDS (22.8-39.4); INR 1.09 (0.85-1.17); PROTIME 13.7 SECONDS (11.6-15.0)
[2017-11-09 14:00] LABS: ALBUMIN 4.3 g/dL (3.4-5.0); ALKALINE PHOSPHATASE 92 U/L (46-116); ALT (SGPT) 27 U/L (10-68); BILIRUBIN - TOTAL 0.67 mg/dL (0.2-1.3); CALC OSMOLALITY 287 mosm/kg (275-300); CALCIUM 9.3 mg/dL (8.5-10.1); CARBON DIOXIDE 29.2 mmol/L (21.0-32.0); CHLORIDE - SERUM 101 mmol/L (98-107); CREATININE - SERUM 0.9 mg/dL (0.6-1.3); GLUCOSE 293 mg/dL (74-106); POTASSIUM - SERUM 4.8 mmol/L (3.5-5.1); PROTEIN - SERUM 7.8 g/dL (6.4-8.2); SODIUM 139 mmol/L (136-145); UREA NITROGEN 10 mg/dL (7-18); eGFR NON AFRICAN AMERICAN > 90 mL/min (90-120)
[2017-11-09 14:15] LABS: CHOL - HDL RATIO 3.8 ratio (2.3-4.9); CHOLESTEROL, TOTAL 132 mg/dL (0-200); CKMB 2.8 U/L (0.0-3.6); CREATINE KINASE 70 UL (21-232); HDL CHOLESTEROL 35 mg/dL (32-96); LDL CHOLESTEROL 76 mg/dL (0-100); LDL-HDL RATIO 2.2 ratio (1.5-3.5); TRIGLYCERIDE 108 mg/dL (30-200); TROPONIN-I < 0.017 ng/mL (0.000-0.060)
== END 2017-11-09 15:45 | disposition home or self-care (01) ==
LOC: D.ER 12:11
PROVIDERS: Emergency Medicine
DX: R07.89 Other chest pain (principal); G89.29 Other chronic pain; I50.9 Heart failure, unspecified; J44.9 Chronic obstructive pulmonary disease, unspecified; E11.9 Type 2 diabetes mellitus without complications; Z79.4 Long term (current) use of insulin; Z86.73 Personal history of transient ischemic attack (TIA), and cerebral infarction without residual deficits

== ENCOUNTER 2017-12-22 13:05 | Emergency (ER) | payer MEDICARE ==
[2017-08-30 14:04] VITALS: BMI 23.7
[2017-12-22 14:00] LABS: BASOPHILS 0.4 % (0-2); EOSINOPHILS 5.1 % (0-7); HEMATOCRIT 38.6 % (42.0-54.0); HEMOGLOBIN 12.8 g/dL (13.5-17.5); IMMATURE GRANULOCYTES 0.4 % (0-5); LYMPHOCYTES 23.5 % (15-50); MCH 27.9 pg (26.0-34.0); MCHC 33.2 g/dL (31.0-37.0); MCV 84.3 fL (80.0-100.0); MEAN PLATELET VOLUME 10.7 fL (7.4-10.4); MONOCYTES 5.8 % (2-11); NEUTROPHILS 64.8 % (40-80); RBC 4.58 10x6/uL (4.20-6.10); RDW 13.4 % (11.5-14.5); WBC 10.9 10x3/uL (4.8-10.8)
[2017-12-22 14:01] LABS: PLATELET COUNT 234 10x3/uL (130-400)
[2017-12-22 14:36] LABS: ALBUMIN 3.5 g/dL (3.4-5.0); ALKALINE PHOSPHATASE 75 U/L (46-116); ALT (SGPT) 22 U/L (10-68); BILIRUBIN - TOTAL 0.34 mg/dL (0.2-1.3); CALC OSMOLALITY 283 mosm/kg (275-300); CALCIUM 8.8 mg/dL (8.5-10.1); CARBON DIOXIDE 24.7 mmol/L (21.0-32.0); CHLORIDE - SERUM 104 mmol/L (98-107); CREATININE - SERUM 0.7 mg/dL (0.6-1.3); GLUCOSE 246 mg/dL (74-106); PROTEIN - SERUM 6.8 g/dL (6.4-8.2); SODIUM 139 mmol/L (136-145); UREA NITROGEN 8 mg/dL (7-18); eGFR NON AFRICAN AMERICAN > 90 mL/min (90-120)
[2017-12-22 14:52] LABS: CKMB 1.9 U/L (0.0-3.6); CREATINE KINASE 68 UL (21-232)
[2017-12-22 14:55] LABS: TROPONIN-I < 0.017 ng/mL (0.000-0.060)
== END 2017-12-22 18:07 | disposition home or self-care (01) ==
LOC: D.ER 13:05
PROVIDERS: Emergency Medicine
DX: R07.9 Chest pain, unspecified (principal); I50.9 Heart failure, unspecified; J44.9 Chronic obstructive pulmonary disease, unspecified; Z86.73 Personal history of transient ischemic attack (TIA), and cerebral infarction without residual deficits; E11.9 Type 2 diabetes mellitus without complications; Z79.4 Long term (current) use of insulin

== ENCOUNTER 2017-12-27 14:29 | Emergency (ER) | payer MEDICARE ==
[2017-08-30 14:04] VITALS: BMI 23.7
== END 2017-12-27 16:33 | disposition home or self-care (01) ==
LOC: D.ER 14:29
DX: Z03.89 Encounter for observation for other suspected diseases and conditions ruled out (principal)

== ENCOUNTER 2018-03-19 19:46 | Emergency (ER) | payer MEDICARE ==
[~2018-03-19] VITALS: Ht 180.3 cm; Wt 87.3 kg
[2018-03-19 19:57] VITALS: Ht 180.3 cm; Wt 87.3 kg
[2018-03-19 20:45] LABS: BASOPHILS 0.2 % (0-2); EOSINOPHILS 1.1 % (0-7); HEMATOCRIT 38.8 % (42.0-54.0); IMMATURE GRANULOCYTES 0.2 % (0-5); LYMPHOCYTES 19.7 % (15-50); MCH 28.3 pg (26.0-34.0); MCHC 33.5 g/dL (31.0-37.0); MCV 84.5 fL (80.0-100.0); MEAN PLATELET VOLUME 10.4 fL (7.4-10.4); MONOCYTES 4.7 % (2-11); NEUTROPHILS 74.1 % (40-80); PLATELET COUNT 230 10x3/uL (130-400); RBC 4.59 10x6/uL (4.20-6.10); WBC 10.3 10x3/uL (4.8-10.8)
[2018-03-19 21:10] LABS: ALBUMIN 3.6 g/dL (3.4-5.0); ALKALINE PHOSPHATASE 88 U/L (46-116); ALT (SGPT) 27 U/L (10-68); BILIRUBIN - TOTAL 0.49 mg/dL (0.2-1.3); CALC OSMOLALITY 283 mosm/kg (275-300); CALCIUM 8.8 mg/dL (8.5-10.1); CARBON DIOXIDE 27.1 mmol/L (21.0-32.0); CHLORIDE - SERUM 105 mmol/L (98-107); CREATININE - SERUM 0.7 mg/dL (0.6-1.3); GLUCOSE 185 mg/dL (74-106); POTASSIUM - SERUM 4.1 mmol/L (3.5-5.1); PROTEIN - SERUM 6.8 g/dL (6.4-8.2); SODIUM 141 mmol/L (136-145); UREA NITROGEN 8 mg/dL (7-18); eGFR NON AFRICAN AMERICAN > 90 mL/min (90-120)
[2018-03-19 21:17] LABS: CREATINE KINASE 70 UL (21-232); MAGNESIUM - SERUM 2.3 mg/dL (1.8-2.4); PRO BNP 226 pg/mL (0-125)
[2018-03-19 21:19] LABS: TROPONIN-I < 0.017 ng/mL (0.000-0.060)
[2018-03-19 22:32] VITALS: BP 132/84
== END 2018-03-19 22:33 | disposition home or self-care (01) ==
LOC: D.ER 19:46
PROVIDERS: Family Medicine
DX: R53.1 Weakness (principal); R07.9 Chest pain, unspecified; Z86.73 Personal history of transient ischemic attack (TIA), and cerebral infarction without residual deficits; E11.9 Type 2 diabetes mellitus without complications; Z86.79 Personal history of other diseases of the circulatory system

== ENCOUNTER 2018-03-31 11:13 | Inpatient (IN) | payer MEDICARE ==
[~2018-03-31] VITALS: Ht 180.3 cm; Wt 82.7 kg
--- NOTE | ~2018-03-31 | EC ---
PATIENT:NATTY KNAPP DATE OF SERVICE: 03/31/18 SEX: M MEDICAL RECORD: [id number] DATE OF : [birth year] LOCATION:D.M2 D.210 AGE OF PATIENT: 52 ADMISSION DATE: 03/31/18 REFERRING PHYSICIAN: INTERPRETING PHYSICIAN: ESTELLA WYMAN MD ECHOCARDIOGRAM REPORT ECHO CHARGES 4 ECHO COMPLETE Date: 04/01 CLINICAL DIAGNOSIS: ELEVATED BNP, HX OF CAD/CABG ECHOCARDIOGRAPHIC MEASUREMENTS (adult normal given) AC root (d.<3.7cm) 3.7 cm LV Septum d (<1.2 cm> 1.2 cm Valve Excursion 1.8 cm LV Septum (systole) 1.3 cm Left Atria (s.<4.0cm> 4.4 cm LVPW d(<1.2cm) 1.2 cm RV (d.<2.3cm) 4.7 cm LVPW (sytole) 1.7 cm LV diastole(<5.6CM) 5.1 cm MV E-F(>70mm/sec) cm LV systole 4.0 cm LVOT Diameter 1.3 cm MV exc.(>10mm) 2.7 cm Est.ejection fraction (50-75%) % DOPPLER: LVIT cm/sec A 54.0 cm/sec E 93.0 cm/sec LA cm/sec RVSP 41 mmHg LVOT 89 cm/sec AOP1/2T m/s Asc. Ao 143 cm/sec RVOT 76 cm/sec RA cm/sec PA 102 cm/sec AV Gradient Peak 8.19 mmHg AV Mean 4.86 mmHg AV Area 2.4 cm MV Gradient Peak 6.10 mmHg MV Mean 1.46 mmHg MV Area cm COMMENTS: Neurology Epilepsy Physician: Jeromy FLOWERS Medical Videographer: 2 Dr. Stahl TAPE# PACS Pericardial Effusion N DATE OF SERVICE: 04/01/2018 PROCEDURE: Echocardiogram. FINDINGS: 1. Left ventricular chamber size is within normal limits. Left ventricular systolic function is normal. Overall ejection fraction estimated at 55%. 2. Left atrium is enlarged at 4.4 cm. Right atrium and right ventricle chamber sizes are as well mildly dilated. 3. Valvular structures have normal structure and motion. ECHOCARDIOGRAM REPORT [id number] NATTY KNAPP 4. Doppler interrogation reveals mild mitral regurgitation, mild tricuspid regurgitation, no other valvular insufficiency or stenosis. Pulmonary systolic pressure is mildly elevated at 41 mmHg. 5. No evidence of pericardial effusion or left ventricular thrombus. TRANSINT:[id number] Voice Confirmation ID: [id number] DOCUMENT ID: [id number] ESTELLA WYMAN MD at 1713 CC: JENNIFER YIN MD [id number] DICTATION DATE: 04/01/18 1237 PLUMBING HARDWARE ASSEMBLER: 04/01/18 1245 ADM IN [place] [id number] [place] [id number]
[2018-03-31 12:30] LABS: BASOPHILS 0.1 % (0-2); EOSINOPHILS 3.3 % (0-7); HEMATOCRIT 37.5 % (42.0-54.0); HEMOGLOBIN 12.4 g/dL (13.5-17.5); IMMATURE GRANULOCYTES 0.3 % (0-5); LYMPHOCYTES 10.1 % (15-50); MCH 28.2 pg (26.0-34.0); MCHC 33.1 g/dL (31.0-37.0); MCV 85.4 fL (80.0-100.0); MEAN PLATELET VOLUME 10.7 fL (7.4-10.4); MONOCYTES 4.6 % (2-11); NEUTROPHILS 81.6 % (40-80); PLATELET COUNT 259 10x3/uL (130-400); RBC 4.39 10x6/uL (4.20-6.10); RDW 13.2 % (11.5-14.5); WBC 18.7 10x3/uL (4.8-10.8)
[2018-03-31 12:48] LABS: ALBUMIN 3.2 g/dL (3.4-5.0); ALKALINE PHOSPHATASE 89 U/L (46-116); ALT (SGPT) 16 U/L (10-68); CALC OSMOLALITY 283 mosm/kg (275-300); CALCIUM 8.7 mg/dL (8.5-10.1); CARBON DIOXIDE 28.7 mmol/L (21.0-32.0); CHLORIDE - SERUM 102 mmol/L (98-107); CREATININE - SERUM 0.8 mg/dL (0.6-1.3); POTASSIUM - SERUM 4.3 mmol/L (3.5-5.1); PROTEIN - SERUM 6.7 g/dL (6.4-8.2); SODIUM 137 mmol/L (136-145); UREA NITROGEN 12 mg/dL (7-18); eGFR NON AFRICAN AMERICAN > 90 mL/min (90-120)
[2018-03-31 12:50] LABS: GLUCOSE 272 mg/dL (74-106)
[2018-03-31 16:23] VITALS: BP 90/50; BMI 26.5
[2018-03-31 20:00] VITALS: BP 94/53
[2018-04-01] VITALS: BP 98/52
[2018-04-01 04:00] VITALS: BP 92/47
[2018-04-01 06:26] LABS: BASOPHILS 0.1 % (0-2); HEMATOCRIT 34.4 % (42.0-54.0); HEMOGLOBIN 11.1 g/dL (13.5-17.5); IMMATURE GRANULOCYTES 0.2 % (0-5); LYMPHOCYTES 22.9 % (15-50); MCH 27.8 pg (26.0-34.0); MCHC 32.3 g/dL (31.0-37.0); MCV 86.2 fL (80.0-100.0); MEAN PLATELET VOLUME 10.5 fL (7.4-10.4); MONOCYTES 7.4 % (2-11); NEUTROPHILS 65.4 % (40-80); PLATELET COUNT 242 10x3/uL (130-400); RBC 3.99 10x6/uL (4.20-6.10); RDW 13.5 % (11.5-14.5)
[2018-04-01 06:34] LABS: WBC 12.2 10x3/uL (4.8-10.8)
[2018-04-01 06:44] LABS: ALBUMIN 2.7 g/dL (3.4-5.0); ALKALINE PHOSPHATASE 71 U/L (46-116); CARBON DIOXIDE 28.2 mmol/L (21.0-32.0); CHLORIDE - SERUM 109 mmol/L (98-107); CREATININE - SERUM 0.6 mg/dL (0.6-1.3); PRO BNP 230 pg/mL (0-125); PROTEIN - SERUM 5.7 g/dL (6.4-8.2); SODIUM 144 mmol/L (136-145); eGFR NON AFRICAN AMERICAN > 90 mL/min (90-120)
[2018-04-01 06:46] LABS: CALC OSMOLALITY 288 mosm/kg (275-300); GLUCOSE 177 mg/dL (74-106); UREA NITROGEN 8 mg/dL (7-18)
[2018-04-01 06:47] LABS: ALT (SGPT) 11 U/L (10-68); POTASSIUM - SERUM 3.6 mmol/L (3.5-5.1)
[2018-04-01 08:15] VITALS: BP 90/41
[2018-04-01 11:46] VITALS: BP 95/55
[2018-04-01 15:55] VITALS: BP 121/56
[2018-04-01 20:00] VITALS: BP 132/57
[2018-04-02] VITALS: BP 104/36
[2018-04-02 04:00] VITALS: BP 106/42
[2018-04-02 07:05] LABS: BASOPHILS 0.1 % (0-2); EOSINOPHILS 6.5 % (0-7); HEMATOCRIT 35.4 % (42.0-54.0); HEMOGLOBIN 11.4 g/dL (13.5-17.5); IMMATURE GRANULOCYTES 0.3 % (0-5); LYMPHOCYTES 22.7 % (15-50); MCH 27.6 pg (26.0-34.0); MCHC 32.2 g/dL (31.0-37.0); MCV 85.7 fL (80.0-100.0); MEAN PLATELET VOLUME 10.3 fL (7.4-10.4); MONOCYTES 7.5 % (2-11); NEUTROPHILS 62.9 % (40-80); PLATELET COUNT 212 10x3/uL (130-400); RBC 4.13 10x6/uL (4.20-6.10); RDW 13.2 % (11.5-14.5); WBC 10.7 10x3/uL (4.8-10.8)
[2018-04-02 07:29] LABS: ALBUMIN 2.9 g/dL (3.4-5.0); ALKALINE PHOSPHATASE 76 U/L (46-116); CALC OSMOLALITY 290 mosm/kg (275-300); CALCIUM 8.9 mg/dL (8.5-10.1); CARBON DIOXIDE 30.1 mmol/L (21.0-32.0); CHLORIDE - SERUM 108 mmol/L (98-107); CREATININE - SERUM 0.7 mg/dL (0.6-1.3); GLUCOSE 146 mg/dL (74-106); PROTEIN - SERUM 6.3 g/dL (6.4-8.2); SODIUM 145 mmol/L (136-145); UREA NITROGEN 10 mg/dL (7-18); eGFR NON AFRICAN AMERICAN > 90 mL/min (90-120)
[2018-04-02 07:30] LABS: ALT (SGPT) 14 U/L (10-68); POTASSIUM - SERUM 4.3 mmol/L (3.5-5.1)
[2018-04-02 08:17] LABS: IMMUNOGLOBULIN A 75 mg/dL (90-386); IMMUNOGLOBULIN G 482 mg/dL (700-1600)
[2018-04-02 08:52] VITALS: BP 153/94
[2018-04-02 11:35] VITALS: BP 140/74
[2018-04-02 15:49] VITALS: BP 116/59
[2018-04-02 22:03] VITALS: BP 130/60
[2018-04-03 01:22] VITALS: BP 145/88
[2018-04-03 05:37] VITALS: BP 111/60
[2018-04-03 07:15] LABS: BASOPHILS 0.1 % (0-2); EOSINOPHILS 6.9 % (0-7); HEMOGLOBIN 11.3 g/dL (13.5-17.5); IMMATURE GRANULOCYTES 0.2 % (0-5); LYMPHOCYTES 24.9 % (15-50); MCH 27.6 pg (26.0-34.0); MCHC 32.3 g/dL (31.0-37.0); MCV 85.4 fL (80.0-100.0); MEAN PLATELET VOLUME 10.6 fL (7.4-10.4); MONOCYTES 7.5 % (2-11); NEUTROPHILS 60.4 % (40-80); PLATELET COUNT 238 10x3/uL (130-400); RDW 13.2 % (11.5-14.5)
[2018-04-03 07:28] LABS: ALBUMIN 2.8 g/dL (3.4-5.0); ALKALINE PHOSPHATASE 75 U/L (46-116); ALT (SGPT) 13 U/L (10-68); CALC OSMOLALITY 287 mosm/kg (275-300); CALCIUM 8.8 mg/dL (8.5-10.1); CARBON DIOXIDE 31.5 mmol/L (21.0-32.0); CHLORIDE - SERUM 108 mmol/L (98-107); CREATININE - SERUM 0.6 mg/dL (0.6-1.3); GLUCOSE 128 mg/dL (74-106); POTASSIUM - SERUM 3.8 mmol/L (3.5-5.1); PROTEIN - SERUM 6.1 g/dL (6.4-8.2); SODIUM 144 mmol/L (136-145); UREA NITROGEN 10 mg/dL (7-18); eGFR NON AFRICAN AMERICAN > 90 mL/min (90-120)
[2018-04-03 08:14] VITALS: BP 108/66
[2018-04-03 13:45] VITALS: BP 108/64
[2018-04-03 16:26] VITALS: BP 105/55
[2018-04-03 22:29] VITALS: BP 140/63
[2018-04-04] VITALS (7 sets, daily range): BP systolic 82–159; BP diastolic 48–80; Ht 180.3 cm; Wt 82.7 kg
[2018-04-04 05:04] LABS: BASOPHILS 0.1 % (0-2); EOSINOPHILS 2.5 % (0-7); HEMATOCRIT 36.2 % (42.0-54.0); HEMOGLOBIN 11.7 g/dL (13.5-17.5); IMMATURE GRANULOCYTES 0.4 % (0-5); LYMPHOCYTES 9.5 % (15-50); MCH 27.4 pg (26.0-34.0); MCHC 32.3 g/dL (31.0-37.0); MCV 84.8 fL (80.0-100.0); MEAN PLATELET VOLUME 10.9 fL (7.4-10.4); MONOCYTES 6.5 % (2-11); PLATELET COUNT 243 10x3/uL (130-400); RBC 4.27 10x6/uL (4.20-6.10); RDW 13.2 % (11.5-14.5)
[2018-04-04 05:12] LABS: WBC 16.9 10x3/uL (4.8-10.8)
[2018-04-04 05:17] LABS: ALBUMIN 3.1 g/dL (3.4-5.0); ALKALINE PHOSPHATASE 79 U/L (46-116); ALT (SGPT) 16 U/L (10-68); CALCIUM 8.6 mg/dL (8.5-10.1); CARBON DIOXIDE 29.3 mmol/L (21.0-32.0); CHLORIDE - SERUM 105 mmol/L (98-107); CREATININE - SERUM 0.7 mg/dL (0.6-1.3); POTASSIUM - SERUM 4.3 mmol/L (3.5-5.1); PROTEIN - SERUM 6.5 g/dL (6.4-8.2); SODIUM 140 mmol/L (136-145); eGFR NON AFRICAN AMERICAN > 90 mL/min (90-120)
[2018-04-04 05:23] LABS: CALC OSMOLALITY 283 mosm/kg (275-300); GLUCOSE 192 mg/dL (74-106); UREA NITROGEN 13 mg/dL (7-18)
[2018-04-04 10:03] LABS: BASOPHILS 0.1 % (0-2); EOSINOPHILS 2.2 % (0-7); HEMATOCRIT 36.8 % (42.0-54.0); HEMOGLOBIN 11.9 g/dL (13.5-17.5); IMMATURE GRANULOCYTES 0.4 % (0-5); LYMPHOCYTES 12.8 % (15-50); MCH 27.6 pg (26.0-34.0); MCHC 32.3 g/dL (31.0-37.0); MCV 85.4 fL (80.0-100.0); MEAN PLATELET VOLUME 10.6 fL (7.4-10.4); MONOCYTES 6.7 % (2-11); NEUTROPHILS 77.8 % (40-80); PLATELET COUNT 232 10x3/uL (130-400); RBC 4.31 10x6/uL (4.20-6.10); RDW 13.2 % (11.5-14.5); WBC 17.4 10x3/uL (4.8-10.8)
[2018-04-04 10:15] LABS: CALC OSMOLALITY 286 mosm/kg (275-300); CALCIUM 8.6 mg/dL (8.5-10.1); CARBON DIOXIDE 30.4 mmol/L (21.0-32.0); CHLORIDE - SERUM 106 mmol/L (98-107); CREATININE - SERUM 0.6 mg/dL (0.6-1.3); GLUCOSE 203 mg/dL (74-106); MAGNESIUM - SERUM 2.1 mg/dL (1.8-2.4); POTASSIUM - SERUM 4.2 mmol/L (3.5-5.1); SODIUM 141 mmol/L (136-145); UREA NITROGEN 12 mg/dL (7-18); eGFR NON AFRICAN AMERICAN > 90 mL/min (90-120)
[2018-04-05] VITALS: BP 107/55
[2018-04-05 04:00] VITALS: BP 107/60
[2018-04-05 05:27] LABS: BASOPHILS 0.2 % (0-2); EOSINOPHILS 5.2 % (0-7); HEMATOCRIT 38.7 % (42.0-54.0); HEMOGLOBIN 12.4 g/dL (13.5-17.5); IMMATURE GRANULOCYTES 0.3 % (0-5); LYMPHOCYTES 21.3 % (15-50); MCH 27.6 pg (26.0-34.0); MCV 86.2 fL (80.0-100.0); MEAN PLATELET VOLUME 10.7 fL (7.4-10.4); MONOCYTES 5.7 % (2-11); NEUTROPHILS 67.3 % (40-80); PLATELET COUNT 274 10x3/uL (130-400); RBC 4.49 10x6/uL (4.20-6.10); RDW 13.3 % (11.5-14.5)
[2018-04-05 05:40] LABS: ALKALINE PHOSPHATASE 76 U/L (46-116); ALT (SGPT) 18 U/L (10-68); CALC OSMOLALITY 287 mosm/kg (275-300); CALCIUM 8.9 mg/dL (8.5-10.1); CARBON DIOXIDE 33.2 mmol/L (21.0-32.0); CHLORIDE - SERUM 108 mmol/L (98-107); CREATININE - SERUM 0.7 mg/dL (0.6-1.3); POTASSIUM - SERUM 4.2 mmol/L (3.5-5.1); PROTEIN - SERUM 6.8 g/dL (6.4-8.2); SODIUM 144 mmol/L (136-145); UREA NITROGEN 12 mg/dL (7-18); eGFR NON AFRICAN AMERICAN > 90 mL/min (90-120)
[2018-04-05 05:51] LABS: GLUCOSE 120 mg/dL (74-106)
[2018-04-05 07:44] VITALS: BP 118/64
[2018-04-05 10:40] VITALS: BP 121/71
[2018-04-05 16:07] VITALS: BP 124/78
[2018-04-05 20:00] VITALS: BP 129/67
[2018-04-05 20:08] LABS: IMMUNOGLOBULIN E 72 IU/mL (0-100)
[2018-04-06 00:32] VITALS: BP 123/67
[2018-04-06 04:00] VITALS: BP 102/38
[2018-04-06 05:40] LABS: BASOPHILS 0.2 % (0-2); EOSINOPHILS 6.9 % (0-7); HEMATOCRIT 34.5 % (42.0-54.0); IMMATURE GRANULOCYTES 0.9 % (0-5); LYMPHOCYTES 26.3 % (15-50); MCH 27.5 pg (26.0-34.0); MCHC 31.9 g/dL (31.0-37.0); MCV 86.3 fL (80.0-100.0); MEAN PLATELET VOLUME 10.6 fL (7.4-10.4); MONOCYTES 8.1 % (2-11); NEUTROPHILS 57.6 % (40-80); PLATELET COUNT 250 10x3/uL (130-400); RDW 13.1 % (11.5-14.5); WBC 9.9 10x3/uL (4.8-10.8)
[2018-04-06 06:21] LABS: ALBUMIN 2.9 g/dL (3.4-5.0); ALKALINE PHOSPHATASE 68 U/L (46-116); ALT (SGPT) 17 U/L (10-68); BILIRUBIN - TOTAL 0.31 mg/dL (0.2-1.3); CALC OSMOLALITY 288 mosm/kg (275-300); CALCIUM 8.9 mg/dL (8.5-10.1); CARBON DIOXIDE 31.4 mmol/L (21.0-32.0); CHLORIDE - SERUM 107 mmol/L (98-107); CREATININE - SERUM 0.7 mg/dL (0.6-1.3); GLUCOSE 143 mg/dL (74-106); POTASSIUM - SERUM 4.3 mmol/L (3.5-5.1); PROTEIN - SERUM 6.3 g/dL (6.4-8.2); SODIUM 144 mmol/L (136-145); UREA NITROGEN 13 mg/dL (7-18); eGFR NON AFRICAN AMERICAN > 90 mL/min (90-120)
[2018-04-06 08:03] VITALS: BP 125/65
[2018-04-06 12:06] VITALS: BP 120/60
[2018-04-06 14:48] VITALS: BP 85/48
[2018-04-06 20:18] VITALS: BP 104/49
[2018-04-07 00:49] VITALS: BP 88/50
[2018-04-07 04:50] VITALS: BP 92/69
[2018-04-07 05:11] LABS: BASOPHILS 0.2 % (0-2); EOSINOPHILS 6.5 % (0-7); HEMOGLOBIN 11.2 g/dL (13.5-17.5); IMMATURE GRANULOCYTES 0.8 % (0-5); LYMPHOCYTES 25.5 % (15-50); MCH 27.5 pg (26.0-34.0); MEAN PLATELET VOLUME 10.9 fL (7.4-10.4); MONOCYTES 5.3 % (2-11); NEUTROPHILS 61.7 % (40-80); PLATELET COUNT 249 10x3/uL (130-400); RBC 4.07 10x6/uL (4.20-6.10); RDW 13.2 % (11.5-14.5); WBC 9.7 10x3/uL (4.8-10.8)
[2018-04-07 05:44] LABS: ALKALINE PHOSPHATASE 66 U/L (46-116); ALT (SGPT) 16 U/L (10-68); BILIRUBIN - TOTAL 0.37 mg/dL (0.2-1.3); CALC OSMOLALITY 286 mosm/kg (275-300); CALCIUM 8.7 mg/dL (8.5-10.1); CARBON DIOXIDE 30.6 mmol/L (21.0-32.0); CHLORIDE - SERUM 107 mmol/L (98-107); CREATININE - SERUM 0.7 mg/dL (0.6-1.3); GLUCOSE 132 mg/dL (74-106); POTASSIUM - SERUM 4.1 mmol/L (3.5-5.1); PROTEIN - SERUM 6.3 g/dL (6.4-8.2); SODIUM 143 mmol/L (136-145); UREA NITROGEN 13 mg/dL (7-18); eGFR NON AFRICAN AMERICAN > 90 mL/min (90-120)
[2018-04-07 08:19] VITALS: BP 142/66
[2018-04-07] MEDS ORDERED: IPRAT-ALBUT 0.5-3 ML UPD (11:09)
[2018-04-07] MEDS ORDERED: BENZONATATE200 MG PO (11:10)
[2018-04-07] MEDS ORDERED: BROVANA15 MCG/2 M INH (11:10)
[2018-04-07] MEDS ORDERED: SINGULAIR10 MG PO (11:11)
[2018-04-07] MEDS ORDERED: MUCINEX DM ER1 EAC1 PO (11:11)
[2018-04-07] MEDS ORDERED: PULMICORT0.5 MG/21 UPD (11:11)
[2018-04-07] MEDS ORDERED: LEVAQUIN750 MG PO (11:12)
[2018-04-07 11:39] VITALS: BP 130/70
== END 2018-04-07 14:05 | disposition home or self-care (01) | DRG 193 ==
LOC: D.ER 11:13 → D.EDHOLD 13:41 → D.M2 13:41
PROVIDERS: Family Medicine; Internal Medicine Pulmonary Disease; Legal Medicine
DX: J18.9 Pneumonia, unspecified organism (principal); J96.02 Acute respiratory failure with hypercapnia; J96.01 Acute respiratory failure with hypoxia; J44.0 Chronic obstructive pulmonary disease with (acute) lower respiratory infection; E03.9 Hypothyroidism, unspecified; F41.8 Other specified anxiety disorders; I25.10 Atherosclerotic heart disease of native coronary artery without angina pectoris; I11.0 Hypertensive heart disease with heart failure; I50.9 Heart failure, unspecified; J30.9 Allergic rhinitis, unspecified; K21.9 Gastro-esophageal reflux disease without esophagitis; G47.33 Obstructive sleep apnea (adult) (pediatric); Z95.5 Presence of coronary angioplasty implant and graft; Z95.1 Presence of aortocoronary bypass graft; Z86.73 Personal history of transient ischemic attack (TIA), and cerebral infarction without residual deficits

== ENCOUNTER 2018-04-21 08:11 | Outpatient (CLI) | payer MEDICARE ==
[~2018-04-21] VITALS: Ht 175.3 cm; Wt 82.7 kg
[~2018-04-21 08:11] MED LIST changes: +BROVANA15 MCG/2 M INH; +IPRAT-ALBUT 0.5-3 ML UPD; +MUCINEX DM ER1 EAC1 PO; +PULMICORT0.5 MG/21 UPD; +SINGULAIR10 MG PO
[2018-04-21 08:38] LABS: BASOPHILS 0.2 % (0-2); EOSINOPHILS 8.6 % (0-7); HEMATOCRIT 42.6 % (42.0-54.0); IMMATURE GRANULOCYTES 0.2 % (0-5); LYMPHOCYTES 20.9 % (15-50); MCH 28.3 pg (26.0-34.0); MCHC 32.9 g/dL (31.0-37.0); MCV 86.2 fL (80.0-100.0); MEAN PLATELET VOLUME 10.3 fL (7.4-10.4); MONOCYTES 8.8 % (2-11); NEUTROPHILS 61.3 % (40-80); PLATELET COUNT 223 10x3/uL (130-400); RBC 4.94 10x6/uL (4.20-6.10); RDW 14.1 % (11.5-14.5); WBC 9.6 10x3/uL (4.8-10.8)
[2018-04-21 08:47] LABS: CALC OSMOLALITY 283 mosm/kg (275-300); CALCIUM 8.9 mg/dL (8.5-10.1); CARBON DIOXIDE 28.3 mmol/L (21.0-32.0); CHLORIDE - SERUM 106 mmol/L (98-107); CREATININE - SERUM 0.8 mg/dL (0.6-1.3); POTASSIUM - SERUM 4.2 mmol/L (3.5-5.1); SODIUM 140 mmol/L (136-145); UREA NITROGEN 13 mg/dL (7-18); eGFR NON AFRICAN AMERICAN > 90 mL/min (90-120)
[2018-04-21 08:49] LABS: GLUCOSE 194 mg/dL (74-106)
[2018-04-21 08:56] LABS: APTT 28.4 SECONDS (22.8-39.4); INR 1.1 (0.85-1.17); PROTIME 13.8 SECONDS (11.6-15.0)
[2018-04-21 09:52] VITALS: Ht 175.3 cm; Wt 82.7 kg
== END 2018-04-21 15:45 | disposition home or self-care (01) ==
LOC: D.SP 08:11
PROVIDERS: Specialist
DX: K76.9 Liver disease, unspecified (principal); Z01.812 Encounter for preprocedural laboratory examination

== ENCOUNTER → 2018-05-05 10:25 | Outpatient (CLI) | payer MEDICARE ==
[2018-04-21 09:52] VITALS: BMI 26.9
== END | disposition home or self-care (01) ==
LOC: D.CT 10:25
DX: J18.9 Pneumonia, unspecified organism (principal)

== ENCOUNTER → 2018-05-18 11:47 | Outpatient (CLI) | payer MEDICARE ==
[2018-04-21 09:52] VITALS: BMI 26.9
== END | disposition home or self-care (01) ==
LOC: D.RAD 11:45 → D.SP 11:45 → D.RAD 11:47
DX: J18.9 Pneumonia, unspecified organism (principal)

== ENCOUNTER 2018-05-19 05:58 | Outpatient (CLI) | payer MEDICARE ==
[~2018-05-19] VITALS: Ht 175.3 cm; Wt 81.8 kg
[2018-05-19 06:21] LABS: BASOPHILS 0.2 % (0-2); EOSINOPHILS 7.2 % (0-7); HEMATOCRIT 43.2 % (42.0-54.0); HEMOGLOBIN 14.2 g/dL (13.5-17.5); IMMATURE GRANULOCYTES 0.3 % (0-5); LYMPHOCYTES 36.6 % (15-50); MCH 27.8 pg (26.0-34.0); MCHC 32.9 g/dL (31.0-37.0); MCV 84.5 fL (80.0-100.0); MEAN PLATELET VOLUME 10.6 fL (7.4-10.4); MONOCYTES 6.3 % (2-11); NEUTROPHILS 49.4 % (40-80); RBC 5.11 10x6/uL (4.20-6.10); RDW 13.7 % (11.5-14.5); WBC 11.6 10x3/uL (4.8-10.8)
[2018-05-19 06:25] LABS: PLATELET COUNT 286 10x3/uL (130-400)
[2018-05-19 06:39] LABS: APTT 28.2 SECONDS (22.8-39.4); INR 0.98 (0.85-1.17); PROTIME 12.6 SECONDS (11.6-15.0)
[2018-05-19 06:43] LABS: CALC OSMOLALITY 286 mosm/kg (275-300); CALCIUM 8.8 mg/dL (8.5-10.1); CARBON DIOXIDE 29.9 mmol/L (21.0-32.0); CHLORIDE - SERUM 104 mmol/L (98-107); POTASSIUM - SERUM 3.8 mmol/L (3.5-5.1); SODIUM 142 mmol/L (136-145); UREA NITROGEN 14 mg/dL (7-18); eGFR NON AFRICAN AMERICAN 83 mL/min (90-120)
[2018-05-19 06:44] LABS: GLUCOSE 145 mg/dL (74-106)
[2018-05-19 07:19] VITALS: BP 127/82; Ht 175.3 cm; Wt 81.8 kg
[2018-05-19 12:43] LABS: HEMOGLOBIN 12.4 g/dL (13.5-17.5)
== END 2018-05-19 13:08 | disposition home or self-care (01) ==
LOC: D.CT 05:58
PROVIDERS: Radiology Vascular & Interventional Radiology
DX: R16.0 Hepatomegaly, not elsewhere classified (principal)

== ENCOUNTER 2018-05-30 19:17 | Emergency (ER) | payer MEDICARE ==
[~2018-05-30] VITALS: Ht 175.3 cm; Wt 79.1 kg
[2018-05-30 19:21] VITALS: Ht 175.3 cm; Wt 79.1 kg
[2018-05-30] MEDS ORDERED: ROXICODONE15 MG PO (19:25)
[2018-05-30] MEDS ORDERED: HYSINGLA ER30 MG PO (19:26)
[2018-05-30] MEDS ORDERED: PRINIVIL20 MG PO (19:26)
[2018-05-30 20:16] LABS: BASOPHILS 0.1 % (0-2); HEMATOCRIT 44.3 % (42.0-54.0); HEMOGLOBIN 15.4 g/dL (13.5-17.5); IMMATURE GRANULOCYTES 0.4 % (0-5); LYMPHOCYTES 24.9 % (15-50); MCH 28.2 pg (26.0-34.0); MCHC 34.8 g/dL (31.0-37.0); MCV 81.1 fL (80.0-100.0); MEAN PLATELET VOLUME 11.1 fL (7.4-10.4); NEUTROPHILS 65.6 % (40-80); PLATELET COUNT 288 10x3/uL (130-400); RBC 5.46 10x6/uL (4.20-6.10); RDW 13.6 % (11.5-14.5); WBC 13.6 10x3/uL (4.8-10.8)
[2018-05-30 20:39] LABS: ALBUMIN 4.4 g/dL (3.4-5.0); ALKALINE PHOSPHATASE 98 U/L (46-116); ALT (SGPT) 54 U/L (10-68); BILIRUBIN - TOTAL 0.65 mg/dL (0.2-1.3); CALC OSMOLALITY 280 mosm/kg (275-300); CARBON DIOXIDE 25.5 mmol/L (21.0-32.0); CHLORIDE - SERUM 106 mmol/L (98-107); CREATININE - SERUM 0.7 mg/dL (0.6-1.3); GLUCOSE 123 mg/dL (74-106); POTASSIUM - SERUM 3.5 mmol/L (3.5-5.1); PROTEIN - SERUM 7.9 g/dL (6.4-8.2); SODIUM 141 mmol/L (136-145); UREA NITROGEN 10 mg/dL (7-18); eGFR NON AFRICAN AMERICAN > 90 mL/min (90-120)
[2018-05-30 23:25] VITALS: BP 148/88
== END 2018-05-30 23:25 | disposition home or self-care (01) ==
LOC: D.ER 19:17
PROVIDERS: Family Medicine
DX: C22.0 Liver cell carcinoma (principal); J44.9 Chronic obstructive pulmonary disease, unspecified; R53.1 Weakness; Z86.73 Personal history of transient ischemic attack (TIA), and cerebral infarction without residual deficits; G40.909 Epilepsy, unspecified, not intractable, without status epilepticus; E11.9 Type 2 diabetes mellitus without complications; I10 Essential (primary) hypertension; I25.10 Atherosclerotic heart disease of native coronary artery without angina pectoris; F17.200 Nicotine dependence, unspecified, uncomplicated

== ENCOUNTER 2018-08-09 17:27 | Inpatient (IN) | payer MEDICARE ==
[~2018-08-09] VITALS: Ht 175.3 cm; Wt 73.5 kg
--- NOTE | ~2018-08-09 | MORECARE ---
CASE MANAGEMENT DISCHARGE SUMMARY PATIENT: NATTY KNAPP UNIT: [id number] ADM DATE: 08/09/18 AGE: 53 : [birth year] SEX: M ROOM/BED: D.2215 AUTHOR: SANDRA PALM PHYSICIAN: REFERRING PHYSICIAN: JENNIFER YIN MD DATE OF SERVICE: 08/10/18 Discharge Plan Patient Name: NATTY KNAPP Facility: [facility]:[place] : 1965 Planned Disposition: Home with Hospice Anticipated Discharge Date: Discharge Date: Expected LOS: Initial Reviewer: [email or web address] Initial Review Date: 08/09/2018 Generated: 08/10/18 2:57 pm Comments DCP- Discharge Planning Updated by [email or web address]: Shital Perez on 08/10/18 12:[address] Hina with [facility] called and stated that she will be here around 1430 DCP- Discharge Planning Updated by [email or web address]: Shital Perez on 08/10/18 11:[address] Patient Name: NATTY KNAPP Admission Status: ER Accout number: [id number] Admission Date: 08-09-2018 : 1965 Admission Diagnosis: Attending: JENNIFER YIN Current LOS: 1 Anticipated DC Date: Planned Disposition: Home with Hospice Primary Insurance: MEDICARE A & B Discharge Planning Comments: CM met with patient, and son to discuss discharge planning needs. Patient is requesting to be on home hospice. He states that the pain is uncontrolled and wants to just go home with hospice. I discussed the different hospice companies. He would like to use [facility]. The family has had experience with them and liked them. I called Poly at [facility] she will call back with a time that they can meet. I called and spoke with Dr Yin and he gave an order for hospice. CM will continue to follow and assist with DC planning. Legal Nurse Consultant: Shital Perez DCPIA - Discharge Planning Initial Assessment Updated by [email or web address]: Shital Perez on 08/10/18 12:39 pm * Is the patient Alert and Oriented? Yes * How many steps to enter\exit or inside your home? * PCP HUMPHREY * Pharmacy BUDGET * Preadmission Environment Home with Family * ADLs Partial Dependent * Partial ADLs (Assistance needed) Ambulation Bathing Medication Management Toileting * Equipment Rolling Walker * List name and contact numbers for known caregivers / representatives who currently or will assist patient after discharge: MARCELLE () [phone] * Verbal permission to speak to the caregivers and representatives has been obtained from the patient. Yes * Additional services required to return to the preadmission environment? Yes * Can the patient safely return to the preadmission environment? Yes * Has this patient been hospitalized within the prior 30 days at any hospital? No Last DP export: 08/10/18 11:50 Patient Name: NATTY KNAPP Page 40514 at 1357 All edits/amendments must be made on the electronic document DICTATION DATE: 08/10/18 1352 GATE GUARD: TANMAY 08/10/18 1357 RPT#: [id number] DC DATE: STATUS: ADM IN [facility] [address] [place] [address] END OF REPORT
--- NOTE | ~2018-08-09 | MORECARE ---
CASE MANAGEMENT DISCHARGE SUMMARY PATIENT: NATTY KNAPP UNIT: [id number] ADM DATE: 08/09/18 AGE: 53 : [birth year] SEX: M ROOM/BED: D.2215 AUTHOR: SANDRA PALM PHYSICIAN: REFERRING PHYSICIAN: JENNIFER YIN MD DATE OF SERVICE: 08/10/18 Discharge Plan Patient Name: NATTY KNAPP Facility: [facility]:[place] : 1965 Planned Disposition: Home with Hospice Anticipated Discharge Date: Discharge Date: Expected LOS: Initial Reviewer: [email or web address] Initial Review Date: 08/09/2018 Generated: 08/10/18 1:42 pm DCPIA - Discharge Planning Initial Assessment Updated by [email or web address]: Shital Perez on 08/10/18 12:39 pm * Is the patient Alert and Oriented? Yes * How many steps to enter\exit or inside your home? * PCP HUMPHREY * Pharmacy BUDGET * Preadmission Environment Home with Family * ADLs Partial Dependent * Partial ADLs (Assistance needed) Ambulation Bathing Medication Management Toileting * Equipment Rolling Walker * List name and contact numbers for known caregivers / representatives who currently or will assist patient after discharge: MARCELLE () [phone] * Verbal permission to speak to the caregivers and representatives has been obtained from the patient. Yes * Additional services required to return to the preadmission environment? Yes * Can the patient safely return to the preadmission environment? Yes * Has this patient been hospitalized within the prior 30 days at any hospital? No External Providers External Provider: [facility] *(provides inpt [facility] Next Contact Date: Service Request Date: Service Type: Resolution: Reviewer: Comments: Patient Name: NATTY KNAPP Page [phone] at 1242 All edits/amendments must be made on the electronic document DICTATION DATE: 08/10/18 1242 MEAT CUTTER APPRENTICE: TANMAY 08/10/18 1242 RPT#: [id number] DC DATE: STATUS: ADM [address] [place] [address] END OF REPORT
--- NOTE | ~2018-08-09 | MORECARE ---
CASE MANAGEMENT DISCHARGE SUMMARY PATIENT: NATTY KNAPP UNIT: [id number] ADM DATE: 08/09/18 AGE: 53 : 61 SEX: M ROOM/BED: D.2215 AUTHOR: SANDRA PALM PHYSICIAN: REFERRING PHYSICIAN: JENNIFER YIN MD DATE OF SERVICE: 08/12/18 Discharge Plan Patient Name: NATTY KNAPP Facility: [facility]:[place] : 1965 Planned Disposition: Home with Hospice Anticipated Discharge Date: Discharge Date: 08/10/2018 Expected LOS: 0 Initial Reviewer: [email or web address] Initial Review Date: 08/09/2018 Generated: 08/12/18 12:19 pm Comments DCP- Discharge Planning Updated by [email or web address]: Shital Perez on 08/12/18 10:[address] patient was discharged to [facility] to their Inpatient unit at [facility] DCP- Discharge Planning Updated by [email or web address]: Shital Perez on 08/10/18 12:[address] Hina with [facility] called and stated that she will be here around 1430 DCP- Discharge Planning Updated by [email or web address]: Shital Perez on 08/10/18 11:[address] Patient Name: NATTY KNAPP Admission Status: ER Accout number: [id number] Admission Date: 08-09-2018 : 1965 Admission Diagnosis: Attending: JENNIFER YIN Current LOS: 1 Anticipated DC Date: Planned Disposition: Home with Hospice Primary Insurance: MEDICARE A & B Discharge Planning Comments: CM met with patient, and son to discuss discharge planning needs. Patient is requesting to be on home hospice. He states that the pain is uncontrolled and wants to just go home with hospice. I discussed the different hospice companies. He would like to use [facility]. The family has had experience with them and liked them. I called Poly at [facility] she will call back with a time that they can meet. I called and spoke with Dr Yin and he gave an order for hospice. CM will continue to follow and assist with DC planning. Insurance Actuary: Shital Perez DCPIA - Discharge Planning Initial Assessment Updated by [email or web address]: Shital Perez on 08/10/18 12:39 pm * Is the patient Alert and Oriented? Yes * How many steps to enter\exit or inside your home? * PCP HUMPHREY * Pharmacy BUDGET * Preadmission Environment Home with Family * ADLs Partial Dependent * Partial ADLs (Assistance needed) Ambulation Bathing Medication Management Toileting * Equipment Rolling Walker * List name and contact numbers for known caregivers / representatives who currently or will assist patient after discharge: MARCELLE () [phone] * Verbal permission to speak to the caregivers and representatives has been obtained from the patient. Yes * Additional services required to return to the preadmission environment? Yes * Can the patient safely return to the preadmission environment? Yes * Has this patient been hospitalized within the prior 30 days at any hospital? No Last DP export: 08/10/18 12:57 Patient Name: NATTY KNAPP Page 84184 at 1119 All edits/amendments must be made on the electronic document DICTATION DATE: 08/12/18 1119 MARINE RAILWAY OPERATOR: TANMAY 08/12/18 1119 RPT#: [id number] DC DATE:08/10/18 STATUS: DIS IN [facility] [address] [place] [address] END OF REPORT
--- NOTE | ~2018-08-09 | MORECARE ---
CASE MANAGEMENT DISCHARGE SUMMARY PATIENT: NATTY KNAPP UNIT: [id number] ADM DATE: 08/09/18 AGE: 53 : 61 SEX: M ROOM/BED: D.2215 AUTHOR: SANDRA PALM PHYSICIAN: REFERRING PHYSICIAN: EJNNIFER YIN MD DATE OF SERVICE: 08/10/18 Discharge Plan Patient Name: NATTY KNAPP Facility: [facility]:[place] : 1965 Planned Disposition: Home with Hospice Anticipated Discharge Date: Discharge Date: Expected LOS: Initial Reviewer: [email or web address] Initial Review Date: 08/09/2018 Generated: 08/10/18 1:50 pm Comments DCP- Discharge Planning Updated by [id number]: Shital Perez on 08/10/18 11:[address] Patient Name: NATTY KNAPP Admission Status: ER Accout number: [id number] Admission Date: 08-09-2018 : 1965 Admission Diagnosis: Attending: JENNIFER YIN Current LOS: 1 Anticipated DC Date: Planned Disposition: Home with Hospice Primary Insurance: MEDICARE A & B Discharge Planning Comments: CM met with patient, and son to discuss discharge planning needs. Patient is requesting to be on home hospice. He states that the pain is uncontrolled and wants to just go home with hospice. I discussed the different hospice companies. He would like to use [facility]. The family has had experience with them and liked them. I called Poly at [facility] she will call back with a time that they can meet. I called and spoke with Dr Yin and he gave an order for hospice. CM will continue to follow and assist with DC planning. Shear Scrapman: Shital Perez DCPIA - Discharge Planning Initial Assessment Updated by [email or web address]: Shital Perez on 08/10/18 12:39 pm * Is the patient Alert and Oriented? Yes * How many steps to enter\exit or inside your home? * PCP HUMPHREY * Pharmacy BUDGET * Preadmission Environment Home with Family * ADLs Partial Dependent * Partial ADLs (Assistance needed) Ambulation Bathing Medication Management Toileting * Equipment Rolling Walker * List name and contact numbers for known caregivers / representatives who currently or will assist patient after discharge: MARCELLE () [phone] * Verbal permission to speak to the caregivers and representatives has been obtained from the patient. Yes * Additional services required to return to the preadmission environment? Yes * Can the patient safely return to the preadmission environment? Yes * Has this patient been hospitalized within the prior 30 days at any hospital? No Last DP export: 08/10/18 11:42 Patient Name: NATTY KNAPP Page 93738 at 1250 All edits/amendments must be made on the electronic document DICTATION DATE: 08/10/181248 DIRECTOR OF DIGITAL PLATFORMS: TANMAY 08/10/181248 RPT#: [id number] DC DATE: STATUS: ADM IN [facility] [address] [place] [address] END OF REPORT
[2018-08-09] MEDS ORDERED: OXYCONTIN10 MG PO (17:40)
[2018-08-09] MEDS ORDERED: LYRICA100 MG PO (17:40)
[2018-08-09 18:14] LABS: BASOPHILS 0.2 % (0-2); EOSINOPHILS 5.7 % (0-7); HEMATOCRIT 39.5 % (42.0-54.0); HEMOGLOBIN 13.4 g/dL (13.5-17.5); IMMATURE GRANULOCYTES 0.3 % (0-5); LYMPHOCYTES 35.4 % (15-50); MCH 28.3 pg (26.0-34.0); MCHC 33.9 g/dL (31.0-37.0); MCV 83.3 fL (80.0-100.0); MEAN PLATELET VOLUME 10.9 fL (7.4-10.4); MONOCYTES 6.1 % (2-11); NEUTROPHILS 52.3 % (40-80); RBC 4.74 10x6/uL (4.20-6.10); RDW 14.3 % (11.5-14.5); WBC 8.9 10x3/uL (4.8-10.8)
[2018-08-09 18:17] LABS: PLATELET COUNT 219 10x3/uL (130-400)
[2018-08-09 18:30] LABS: ALBUMIN 3.8 g/dL (3.4-5.0); ALKALINE PHOSPHATASE 74 U/L (46-116); ALT (SGPT) 29 U/L (10-68); BILIRUBIN - TOTAL 0.37 mg/dL (0.2-1.3); CALC OSMOLALITY 286 mosm/kg (275-300); CALCIUM 8.9 mg/dL (8.5-10.1); CARBON DIOXIDE 25.5 mmol/L (21.0-32.0); CHLORIDE - SERUM 106 mmol/L (98-107); CREATININE - SERUM 0.8 mg/dL (0.6-1.3); POTASSIUM - SERUM 3.8 mmol/L (3.5-5.1); SODIUM 143 mmol/L (136-145); UREA NITROGEN 8 mg/dL (7-18); eGFR NON AFRICAN AMERICAN > 90 mL/min (90-120)
[2018-08-09 18:32] LABS: GLUCOSE 171 mg/dL (74-106)
[2018-08-09 18:34] LABS: AMYLASE - SERUM 57 U/L (25-115); LIPASE 754 U/L (73-393)
[2018-08-09 18:39] LABS: TROPONIN-I < 0.017 ng/mL (0.000-0.060)
[2018-08-09 19:22] LABS: APPEARANCE CLEAR (CLEAR); BACTERIA FEW /hpf (NONE SEEN); BILIRUBIN NEGATIVE (NEGATIVE); COLOR YELLOW (YELLOW); GLUCOSE 100 mg/dL (NEGATIVE); KETONE NEGATIVE (NEGATIVE); NITRITE NEGATIVE (NEGATIVE); PROTEIN NEGATIVE (NEGATIVE); UROBILINOGEN NORMAL (NORMAL); WHITE CELLS - URINE 0-5 /hpf (0-5)
[2018-08-09 20:49] VITALS: BP 158/89
[2018-08-09 22:52] VITALS: BP 158/89; BMI 23.9
[2018-08-10 00:35] VITALS: BP 121/61
[2018-08-10 05:55] LABS: BASOPHILS 0.2 % (0-2); EOSINOPHILS 7.2 % (0-7); HEMATOCRIT 37.2 % (42.0-54.0); HEMOGLOBIN 12.1 g/dL (13.5-17.5); IMMATURE GRANULOCYTES 0.1 % (0-5); LYMPHOCYTES 38.5 % (15-50); MCH 27.5 pg (26.0-34.0); MCHC 32.5 g/dL (31.0-37.0); MCV 84.5 fL (80.0-100.0); MEAN PLATELET VOLUME 11.5 fL (7.4-10.4); MONOCYTES 6.4 % (2-11); NEUTROPHILS 47.6 % (40-80); PLATELET COUNT 181 10x3/uL (130-400); RDW 14.3 % (11.5-14.5); WBC 8.5 10x3/uL (4.8-10.8)
[2018-08-10 06:16] LABS: ALBUMIN 3.1 g/dL (3.4-5.0); ALKALINE PHOSPHATASE 60 U/L (46-116); ALT (SGPT) 24 U/L (10-68); BILIRUBIN - TOTAL 0.29 mg/dL (0.2-1.3); CALC OSMOLALITY 286 mosm/kg (275-300); CALCIUM 8.4 mg/dL (8.5-10.1); CARBON DIOXIDE 27.3 mmol/L (21.0-32.0); CHLORIDE - SERUM 108 mmol/L (98-107); CREATININE - SERUM 0.7 mg/dL (0.6-1.3); GLUCOSE 173 mg/dL (74-106); POTASSIUM - SERUM 3.8 mmol/L (3.5-5.1); PROTEIN - SERUM 5.9 g/dL (6.4-8.2); SODIUM 143 mmol/L (136-145); UREA NITROGEN 8 mg/dL (7-18); eGFR NON AFRICAN AMERICAN > 90 mL/min (90-120)
[2018-08-10 08:46] VITALS: BP 107/63
[2018-08-10 12:30] VITALS: BP 127/60
[2018-08-10 14:03] VITALS: BMI 23.9
[2018-08-10 20:22] VITALS: Ht 175.3 cm; Wt 73.5 kg
== END 2018-08-10 19:20 | disposition home health service (06) | DRG 437 ==
LOC: D.ER 17:27 → D.EDHOLD 20:07 → D.MS 20:14
PROVIDERS: Family Medicine
DX: C22.9 Malignant neoplasm of liver, not specified as primary or secondary (principal); E11.9 Type 2 diabetes mellitus without complications; I10 Essential (primary) hypertension; I25.10 Atherosclerotic heart disease of native coronary artery without angina pectoris; J44.9 Chronic obstructive pulmonary disease, unspecified; F41.8 Other specified anxiety disorders; G89.29 Other chronic pain; Z51.5 Encounter for palliative care; F17.200 Nicotine dependence, unspecified, uncomplicated